=== PATIENT | female | born 1945 | race Caucasian/White ===

== ENCOUNTER → 2017-02-02 | Outpatient (CLI) | payer MEDICARE ==
[2017-02-02 12:07] LABS: Basophils % (A) 1 %; CH 31.5; Eosinophils # (A) 0.2 k/uL (0-0.7); Eosinophils % (A) 3 %; HCT 41.4 % (34.0-46.0); HGB 14.8 gm/dL (11.4-16.0); Luc # (Auto) 0.07; Luc % (Auto) 2; Lymphocytes # (A) 1.3 k/uL (1.0-4.8); Lymphocytes % (A) 28 %; MCH 33.3 pg (25.0-35.0); MCHC 35.7 g/dL (31.0-37.0); MCV 93.1 fL (80.0-100.0); Mean Platelet Volume 7.1; Monocytes # (A) 0.3 k/uL (0-1.0); Monocytes % (A) 6 %; Neutrophils # (A) 2.8 k/uL (1.3-7.7); Neutrophils % (A) 61 %; RBC 4.44 m/uL (3.80-5.40); RDW 13.3 % (11.5-15.5); WBC 4.6 k/uL (3.8-10.6); WBC (Perox) 4.44
== END | disposition home or self-care (01) ==
LOC: LABWHC1 11:31
PROVIDERS: ATTEND Psychiatry & Neurology Psychiatry
DX: D64.9 Anemia, unspecified (principal); E03.9 Hypothyroidism, unspecified
CPT/HCPCS: 36415; 82607; 82746; 84439; 84443; 85025

== ENCOUNTER 2017-12-20 10:49 | Day surgery (SDC) | payer MEDICARE ==
[2017-12-15 17:11] VITALS: BMI 33.0
[~2017-12-20 10:49] MED LIST: LACTATED RINGERS 1,000 ML IV SCH
[2017-12-20 11:11] VITALS: RESP 18; TEMP 97.8
[2017-12-20] MEDS ORDERED: LIDOCAINE 1% INJ 10MG/ML (20 ML MDV) ONE (12:41)
[2017-12-20] MEDS ORDERED: PROPOFOL 10 MG/ML 20 ML VIAL IV ONE (12:41)
--- NOTE | 2017-12-20 13:13 | P.PCN ---
Date of Procedure: 12/20/17 Procedure(s) Performed: Procedure: Total colonoscopy. Preoperative diagnosis: Screening for neoplasia. Postoperative diagnosis: Diverticulosis with no evidence of acute diverticulitis , strictures, polyps or cancer. Preparation: HalfLytely prep. Sedation: Was provided by anesthesia. Brief clinical history: The patient is a 72-year-old female who is scheduled for this evaluation for screening for neoplasia age being her risk factor. She had a prior exam more than 10 years ago. There is no family history of colon cancer. She has no abdominal complaints, bleeding or anemia. Procedure: With the patient on her left lateral decubitus position and after informed consent and adequate sedation, the perianal area was elected and it did not show any fissures or fistulas. There were no masses felt on digital rectal examination. The Olympus CFQ 160L video colonoscope was then inserted in the rectum in the usual fashion and advanced to the cecum. There were multiple diverticular orifices seen on the left side and around the hepatic flexure but there was no evidence of acute diverticulitis or strictures. No polyps or tumors were seen. I retroflexed the endoscope in the rectum before the endoscope was withdrawn. The patient tolerated the procedure well. Plan: The patient was reassured. Discussed dietary measures. She will follow- up with you as planned and I recommended repeat exam in 10 years depending on her overall health at that time.
[2017-12-20 13:27] VITALS: BP 120/75; PULSE 59
== END 2017-12-20 13:47 | disposition home or self-care (01) ==
LOC: ORWHC2ENDO 10:49
DX: Z12.11 Encounter for screening for malignant neoplasm of colon (principal); K57.30 Diverticulosis of large intestine without perforation or abscess without bleeding; I10 Essential (primary) hypertension; M19.90 Unspecified osteoarthritis, unspecified site; E05.00 Thyrotoxicosis with diffuse goiter without thyrotoxic crisis or storm; F39 Unspecified mood [affective] disorder; Z79.890 Hormone replacement therapy; Z79.899 Other long term (current) drug therapy
CPT/HCPCS: J2001; J2704; G0121

== ENCOUNTER 2018-12-26 12:16 | Emergency (ER) | payer MEDICARE ==
--- NOTE | 2018-12-26 12:34 | ED ---
General Adult HPI - General Chief complaint: Shortness of Breath Stated complaint: ELVIE Time Seen by Provider: 12/26/18 12:34 Source: patient, RN notes reviewed Mode of arrival: ambulatory Limitations: no limitations - History of Present Illness Initial comments: 73-year-old female with a past medical history of hypertension, osteoarthritis, thyroid disorder, breast cancer 20 years ago presents for shortness of breath. Patient states that last night she was putting a pillow case on a pillow when he started to feel short of breath. States that this then resolved however today she started to feel a little short of breath again. States she has had panic attacks in the past but this does not feel like that. Admits to mild chest pain but denies any significant chest pain. Denies any leg pain. Denies any recent surgeries.Patient has no other complaints at this time including shortness of breath, chest pain, abdominal pain, nausea or vomiting, headache, or visual changes. - Related Data Home Medications Medication Instructions Recorded Confirmed Escitalopram Oxalate [Lexapro] 10 mg PO DAILY 12/15/17 12/26/18 Levothyroxine Sodium [Levoxyl] 150 mcg PO DAILY 12/15/17 12/26/18 Mirtazapine 7.5 mg PO DAILY 12/15/17 12/26/18 Nadolol [Corgard] 20 mg PO DAILY 12/20/17 12/26/18 clonazePAM [KlonoPIN] 0.25 mg PO DAILY 12/26/18 12/26/18 clonazePAM [KlonoPIN] 0.5 mg PO PC-SUPPER 12/26/18 12/26/18 Allergies Allergy/AdvReac Type Severity Reaction Status Date / Time aspirin AdvReac Abdominal Verified 12/26/18 13:06 Pain Review of Systems ROS Statement: Those systems with pertinent positive or pertinent negative responses have been documented in the HPI. ROS Other: All systems not noted in ROS Statement are negative. Past Medical History Past Medical History: Cancer, Hypertension, Osteoarthritis (OA), Thyroid Disorder Additional Past Medical History / Comment(s): Graves Disease History of Any Multi-Drug Resistant Organisms: None Reported Past Surgical History: Back Surgery, Breast Surgery, Cholecystectomy, Joint Replacement Additional Past Surgical History / Comment(s): Colonoscopy; Knee replacement Mastectomy; Cataracts Additional Past Anesthesia/Blood Transfusion Reaction / Comment(s): states she had panic attack after last colonoscopy Past Psychological History: Anxiety, Depression Smoking Status: Never smoker Past Alcohol Use History: None Reported Past Drug Use History: None Reported - Past Family History Mother Family Medical History: Cancer Additional Family Medical History / Comment(s): Lung CA Father Family Medical History: Cancer Additional Family Medical History / Comment(s): Lung CA General Exam Limitations: no limitations General appearance: alert, in no apparent distress Head exam: Present: atraumatic, normocephalic, normal inspection Eye exam: Present: normal appearance, PERRL, EOMI. Absent: scleral icterus, conjunctival injection ENT exam: Present: normal exam, mucous membranes moist Neck exam: Present: normal inspection, full ROM. Absent: tenderness, meningismus, lymphadenopathy Respiratory exam: Present: normal lung sounds bilaterally. Absent: respiratory distress, wheezes, rales, rhonchi, stridor Cardiovascular Exam: Present: regular rate, normal rhythm, normal heart sounds. Absent: systolic murmur, diastolic murmur, rubs, gallop, clicks Neurological exam: Present: alert, oriented X3, CN II-XII intact Psychiatric exam: Present: normal affect, normal mood Course Vital Signs 12/26/18 12/26/18 12/26/18 12:26 13:46 17:25 Temperature 97.4 F L 97.5 F L Pulse Rate 69 63 60 Respiratory 22 18 18 Rate Blood Pressure 118/77 128/78 139/80 O2 Sat by Pulse 95 95 95 Oximetry EKG Findings - EKG Comments: EKG Findings:: Normal sinus rhythm, ventricular rate 66, IL interval 186, QRS duration 82, QTC 429 Medical Decision Making - Medical Decision Making 73-year-old female presents to the emergency department for a chief coming shortness of breath since last night. Vitals are stable. Exam is unremarkable. She does not appear in distress, actually states that shortness of breath is resolving. CBC CMP and unremarkable. Patient does have a d-dimer of 13.15 and with computed tomography scan. CT angio does show evidence of significant bilateral pulmonary embolisms without evidence for right heart strain. However patient does have a small troponin of 0.021 and a BNP of 477. Patient was started on high dose heparin. Discussed with patient and at this time we agree patient will be transferred to [facility]. Dr. strong is the accepting doctor. Disccused case and reviewed results with Dr gonzales. - Lab Data Result diagrams: 12/26/18 13:11 12/26/18 13:11 Lab Results 12/26/18 12/26/18 12/26/18 Range/Units 13:11 13:11 13:11 WBC 7.2 (3.8-10.6) k/uL RBC 4.59 (3.80-5.40) m/uL Hgb 14.7 (11.4-16.0) gm/dL Hct 42.7 (34.0-46.0) % MCV 93.1 (80.0-100.0) fL MCH 32.1 (25.0-35.0) pg MCHC 34.5 (31.0-37.0) g/dL RDW 13.9 (11.5-15.5) % Plt Count 134 L (150-450) k/uL Neutrophils % (Manual) 65 % Lymphocytes % (Manual) 24 % Monocytes % (Manual) 10 % Eosinophils % (Manual) 1 % Neutrophils # (Manual) 4.68 (1.3-7.7) k/uL Lymphocytes # (Manual) 1.73 (1.0-4.8) k/uL Monocytes # (Manual) 0.72 (0-1.0) k/uL Eosinophils # (Manual) 0.07 (0-0.7) k/uL Nucleated RBCs 0 (0-0) /100 WBC Manual Slide Review Performed RBC Morphology Normal PT 9.9 (9.0-12.0) sec INR 0.9 (<1.2) APTT 21.8 L (22.0-30.0) sec D-Dimer 13.15 H (<0.60) mg/L FEU Sodium 138 (137-145) mmol/L Potassium 4.8 (3.5-5.1) mmol/L Chloride 107 (98-107) mmol/L Carbon Dioxide 23 (22-30) mmol/L Anion Gap 8 mmol/L BUN 29 H (7-17) mg/dL Creatinine 0.66 (0.52-1.04) mg/dL Est GFR (CKD-EPI)AfAm >90 (>60 ml/min/1.73 sqM) Est GFR (CKD-EPI)NonAf 89 (>60 ml/min/1.73 sqM) Glucose 92 (74-99) mg/dL Calcium 9.6 (8.4-10.2) mg/dL Magnesium 2.0 (1.6-2.3) mg/dL Total Bilirubin 0.7 (0.2-1.3) mg/dL AST 36 (14-36) U/L ALT 18 (9-52) U/L Alkaline Phosphatase 52 (38-126) U/L Troponin I (0.000-0.034) ng/mL NT-Pro-B Natriuret Pep pg/mL Total Protein 7.6 (6.3-8.2) g/dL Albumin 4.4 (3.5-5.0) g/dL 12/26/18 12/26/18 Range/Units 13:11 13:11 WBC (3.8-10.6) k/uL RBC (3.80-5.40) m/uL Hgb (11.4-16.0) gm/dL Hct (34.0-46.0) % MCV (80.0-100.0) fL MCH (25.0-35.0) pg MCHC (31.0-37.0) g/dL RDW (11.5-15.5) % Plt Count (150-450) k/uL Neutrophils % (Manual) % Lymphocytes % (Manual) % Monocytes % (Manual) % Eosinophils % (Manual) % Neutrophils # (Manual) (1.3-7.7) k/uL Lymphocytes # (Manual) (1.0-4.8) k/uL Monocytes # (Manual) (0-1.0) k/uL Eosinophils # (Manual) (0-0.7) k/uL Nucleated RBCs (0-0) /100 WBC Manual Slide Review RBC Morphology PT (9.0-12.0) sec INR (<1.2) APTT (22.0-30.0) sec D-Dimer (<0.60) mg/L FEU Sodium (137-145) mmol/L Potassium (3.5-5.1) mmol/L Chloride (98-107) mmol/L Carbon Dioxide (22-30) mmol/L Anion Gap mmol/L BUN (7-17) mg/dL Creatinine (0.52-1.04) mg/dL Est GFR (CKD-EPI)AfAm (>60 ml/min/1.73 sqM) Est GFR (CKD-EPI)NonAf (>60 ml/min/1.73 sqM) Glucose (74-99) mg/dL Calcium (8.4-10.2) mg/dL Magnesium (1.6-2.3) mg/dL Total Bilirubin (0.2-1.3) mg/dL AST (14-36) U/L ALT (9-52) U/L Alkaline Phosphatase (38-126) U/L Troponin I 0.021 (0.000-0.034) ng/mL NT-Pro-B Natriuret Pep 477 pg/mL Total Protein (6.3-8.2) g/dL Albumin (3.5-5.0) g/dL Disposition Clinical Impression: Bilateral pulmonary embolism Disposition: OTHER INSTITUTION NOT DEFINED Condition: Serious Is patient prescribed a controlled substance at d/c from ED?: No Referrals: Fabio Babin MD [Primary Care Provider] - 1-2 days Time of Disposition: 16:26 - Out of Hospital Transfer - Req. Specs Out of Hospital Transfer - Requested Specifics: Other Emergency Center ([facility])
[2018-12-26 13:44] LABS: Anion Gap 8 mmol/L; Blood Urea Nitrogen 29 mg/dL (7-17); Calcium 9.6 mg/dL (8.4-10.2); Carbon Dioxide 23 mmol/L (22-30); Chloride 107 mmol/L (98-107); Glucose 92 mg/dL (74-99); Sodium 138 mmol/L (137-145); Total Bilirubin 0.7 mg/dL (0.2-1.3)
[2018-12-26 13:48] VITALS: RESP 18
[2018-12-26 14:01] LABS: INR 0.9 (<1.2); Potassium 4.8 mmol/L (3.5-5.1); Prothrombin Time 9.9 sec (9.0-12.0)
[2018-12-26 14:02] LABS: ALT 18 U/L (9-52); AST 36 U/L (14-36); Albumin 4.4 g/dL (3.5-5.0); Alkaline Phosphatase 52 U/L (38-126); Total Protein 7.6 g/dL (6.3-8.2)
[2018-12-26 14:12] LABS: HCT 42.7 % (34.0-46.0); HGB 14.7 gm/dL (11.4-16.0); MCH 32.1 pg (25.0-35.0); MCHC 34.5 g/dL (31.0-37.0); MCV 93.1 fL (80.0-100.0); Mean Platelet Volume 7.7; Platelet Count 134 k/uL (150-450); RBC 4.59 m/uL (3.80-5.40); RDW 13.9 % (11.5-15.5); WBC 7.2 k/uL (3.8-10.6)
--- NOTE | 2018-12-26 14:14 | XR ---
EXAMINATION TYPE: XR chest 2V DATE OF EXAM: 12/26/2018 COMPARISON: Prior chest x-ray dated 07/16/2009 HISTORY: Difficulty breathing TECHNIQUE: Frontal and lateral views of the chest are obtained. FINDINGS: There are overlying cardiac leads. Aorta is dense. There is no focal air space opacity, pl eural effusion, or pneumothorax seen. The cardiac silhouette size is within normal limits. Minimal patchy density present at the left costophrenic angle level. Findings are stable. The osseous structu res are intact. IMPRESSION: No acute cardiopulmonary process.
[2018-12-26 14:39] LABS: D-Dimer 13.15 mg/L FEU (<0.60); Partial Thromboplastin Time 21.8 sec (22.0-30.0)
[2018-12-26 14:42] LABS: Eosinophils # (M) 0.07 k/uL (0-0.7); Lymphocytes # (M) 1.73 k/uL (1.0-4.8); Monocytes # (M) 0.72 k/uL (0-1.0); Neutrophils # (M) 4.68 k/uL (1.3-7.7); Neutrophils % (M) 65 %; Nucleated Red Blood Cells 0 /100 WBC (0-0); Total Cells Counted 100
--- NOTE | 2018-12-26 15:49 | CT ---
EXAMINATION TYPE: CT chest angio for PE DATE OF EXAM: 12/26/2018 COMPARISON: NONE HISTORY: Difficulty breathing, rule out PE. CT DLP: 324 mGycm. Automated Exposure Control for Dose Reduction was Utilized. CONTRAST: CTA scan of the thorax is performed with IV Contrast, patient injected with 100 mL of Isovue 370, pul monary embolism protocol. MIP Images are created on CT scanner and reviewed. FINDINGS: LUNGS: Bilateral lower lung linear scarring and/or atelectasis is present most prominent posteriorly and near diaphragm. Some central areas of groundglass opacity are identified bilaterally favoring mil d alveolar edema. No focal consolidation. No pleural effusion or pneumothorax. No suspicious nodules or masses. MEDIASTINUM: There is satisfactory enhancement of the pulmonary artery and its branches, there is pul monary embolism in the distal right pulmonary artery and its branches into upper middle and lower lob e branches beginning axial image 59 with thrombus extending into these lobes. Most prominent thrombus in right middle and lower lobe branches with segmental and subsegmental extension. There is thrombus on the left side slightly less prominent beginning at origins of the lingular and lower lobes with s egmental and subsegmental extension. RV over LV ratio is less than 1. No reflux of contrast into IVC is seen. There are no greater than 1 cm hilar or mediastinal lymph nodes. No cardiomegaly or perica rdial effusion is seen. Atrophic thyroid gland noted. Main pulmonary artery measures 3.2 cm in diamet er axial image 59, CT findings may reflect underlying pulmonary artery hypertension. Ascending aorta measures up to 3.6 cm in diameter. OTHER: Cholecystectomy clips are seen. Scoliotic curvature with straightening of the spine and mild t o moderate multilevel tearing and disc space narrowing. IMPRESSION: Significant bilateral pulmonary embolism without CT evidence for RV strain. Critical results communicated to ordering emergency care physician assistant child care teacher via telephone at time of dictation.
[2018-12-26] MEDS ORDERED: HEPARIN SODIUM,PORCINE 10,000 UNIT/ML 1 ML VIAL IV ONE (15:59)
[2018-12-26] MEDS ORDERED: HEPARIN SODIUM,PORCINE 5,000 UNIT/ML 1 ML VIAL IV PRN (15:59)
[2018-12-26] MEDS ORDERED: HEPARIN SOD,PORK IN 0.45% NACL 25,000 UNIT in 0.45% NACL 1 250ML.BAG IV SCH (16:30)
[2018-12-26 17:26] VITALS: BP 139/80; PULSE 60; TEMP 97.5
== END 2018-12-26 18:11 | disposition other institution (70) ==
LOC: EC 12:16
DX: I26.99 Other pulmonary embolism without acute cor pulmonale (principal); I10 Essential (primary) hypertension; E07.9 Disorder of thyroid, unspecified; F32.9 Major depressive disorder, single episode, unspecified; M19.90 Unspecified osteoarthritis, unspecified site; F41.9 Anxiety disorder, unspecified; Z85.3 Personal history of malignant neoplasm of breast; Z79.890 Hormone replacement therapy; Z79.899 Other long term (current) drug therapy; Z88.6 Allergy status to analgesic agent; Z96.659 Presence of unspecified artificial knee joint
CPT/HCPCS: 36415; 93005; 85379; 83880; 80053; 83735; 84484; 85025; 85610; 85730; 71046; 71275; 99285; 96365; 96376; J1644 ×2; Q9967

== ENCOUNTER → 2019-07-12 | Outpatient (CLI) | payer MEDICARE ==
--- NOTE | 2019-07-12 09:41 | US ---
EXAMINATION TYPE: US abdomen complete DATE OF EXAM: 07/12/2019 COMPARISON: NONE CLINICAL HISTORY: R1013 EPIGASTRIC PAIN,R11.0 NAUSEA. Intermittent abdomen pain and bloating x 4 week s, history of cholecystectomy EXAM MEASUREMENTS: Liver Length: 15.4 cm CBD: 1.1 cm Spleen: 10.3 cm Right Kidney: 12.0 x 5.3 x 4.8 cm Left Kidney: 11.3 x 5.2 x 4.9 cm Pancreas: visualized portions wnl, tail limited by overlying midline bowel gas Liver: mildly heterogeneous Gallbladder: surgically absent Evidence for sonographic Valenzuela's sign: no CBD: dilated Spleen: wnl Right Kidney: wnl Left Kidney: wnl Upper IVC: wnl Abd Aorta: proximal portion upper limits of normal at 2.8cm, mid and distal portions wnl The intrahepatic portion of the IVC and proximal abdominal aorta are within normal limits. There is no evidence of cholelithiasis. The visualized portions of the pancreas are homogenous. The spleen is unremarkable. Kidneys are symmetric and free of hydronephrosis. No renal lesions are seen. IMPRESSION: 1. Fatty hepatic infiltration. 2. Nonspecific CBD dilatation.
== END | disposition home or self-care (01) ==
LOC: RADUSWWP 08:52
PROVIDERS: ATTEND Internal Medicine
DX: K76.0 Fatty (change of) liver, not elsewhere classified (principal); K83.8 Other specified diseases of biliary tract
CPT/HCPCS: 76700

== ENCOUNTER → 2022-03-01 | Outpatient (CLI) | payer MEDICARE ==
--- NOTE | 2022-03-01 18:32 | BD ---
EXAMINATION TYPE: Axial Bone Density DATE OF EXAM: 03/01/2022 COMPARISON: 08.10.2012 CLINICAL HISTORY: 77 years year old Female. ICD-10 CODE: M85.88 OTH DISRD OF BONE DENSITY AND STRUCT URE, OT Height: 66 Weight: 222 FRAX RISK QUESTIONS: Secondary Osteoporosis: YES 3. Menopause before 45: EYS, AT 45 RISK FACTORS HISTORY OF: Surgery to Spine DISC SURG. ONLY FOR LUMBAR SPINE Family History of Osteoporosis: UNKNOWN Postmenopausal woman: HYST AT AGE 45 TOTAL Take estrogen and/or progesterone medications: YES, IN THE PAST FOR 10 YRS, CAUSED BR CANCER Hyperparathyroidism: NO Adrenal Insufficiency: NO MEDICATIONS: Thyroid Medications: YES, SYNTHROID, 30 YRS Additional Medications: HX OF CHEMO FOR LT BREAST CANCER, BP MEDS, CLONOPIN, REFLUX MED, VIT D AND CALCIUM, HEART MEDS, INCLUDING BLOOD THINNER, HX OF BLOOD CLOTS IN LUNGS, Additional History: HX OF LT BREAST CANCER, WITH MASTECTOMY, LONG AGO, BACK PAIN, REFLUX, BLOOD CLOT S, HYPERTENSION, ANXIETY EXAM MEASUREMENTS: Bone mineral densitometry was performed using the [employer] System. Bone mineral density as measured about the Lumbar spine is: ----- L1-L4(G/cm2): 0.978 T Score Values are as follows: ----- L1: -1.9 ----- L2: -2.1 ----- L3: -1.6 ----- L4: -1.4 ----- L1-L4: -1.7 Bone mineral density has: Decreased -0.8% since study of: 08.10.2012 Bone mineral density about the R hip (g/cm2): 0.815 Bone mineral density about the L hip (g/cm2): 0.781 T Score values are as follows: -----R Neck: -1.3 -----L Neck: -1.6 -----R Total: -1.5 -----L Total: -1.8 Bone mineral density has: Decreased -4.0% since study of: 08.10.2012 FRAX%s: The graph provided illustrates a 17.3% chance for a major osteoporotic fx and a 4.2% chance f or the hips probability for fx in 10 years time. IMPRESSION: Osteopenia (T Score between -2.5 and -1). There is slightly increased risk of fracture and the patient may be considered for treatment. Re-Screen 2-5 years. NOTE: T-SCORE=SD OF THE YOUNG ADULT MEAN.
== END | disposition home or self-care (01) ==
LOC: RADBDWWP 12:22
PROVIDERS: ATTEND Internal Medicine
DX: M85.88 Other specified disorders of bone density and structure, other site (principal); Z78.0 Asymptomatic menopausal state
CPT/HCPCS: 77080

== ENCOUNTER → 2023-08-04 | Outpatient (CLI) | payer MEDICARE ==
--- NOTE | 2023-08-05 11:37 | MR ---
EXAMINATION TYPE: MR lumbar spine wo con DATE OF EXAM: 08/04/2023 5:18 PM CLINICAL INDICATION:Female, 78 years old with history of M54.50, Low back pain that radiates down lef t leg COMPARISON: None TECHNIQUE: Multi planar, multi sequence imaging was performed utilizing: T1-weighted, T2-weighted, a nd turbo inversion recovery imaging of the lumbar spine. IV Contrast: (None if empty) FINDINGS: Alignment: The lumbar vertebral bodies have preserved heights and alignment. Cord: The conus medullaris and the distal spinal cord appear unremarkable with regards to their signa l intensity and morphology. Bones/Discs: Multilevel degeneration changes with Modic endplate changes, osteophytes, Schmorl's node s and facet joint arthropathy. Findings worse at L4-L5. T12-L1: No evidence of significant spinal canal stenosis or neural foraminal stenosis. L1-L2: No evidence of significant spinal canal stenosis or neural foraminal stenosis. L2-L3: Disc bulge and facet joint arthropathy result in mild spinal canal and mild bilateral neural f oraminal stenosis. L3-L4: Disc bulge with facet joint arthropathy of moderate to severe spinal canal stenosis. There is clumping of the cauda equina. L4-L5: Complete loss of disc space with facet joint arthropathy of mild spinal canal stenosis. The ne ural foramen are mildly narrowed. L5-S1: The disc is rounded posterior morphology without significant spinal canal stenosis. Facet join t arthropathy with moderate to severe right and moderate left neural foraminal stenosis. No significant spinal canal or neural foraminal stenosis in the remainder of the visualized levels. Other findings: Simple appearing high T2 left renal cyst measuring up to 2.6 cm. Mild intrahepatic a nd extrahepatic biliary dilation likely secondary to cholecystectomy physiology. IMPRESSION: 1. Moderate to severe degeneration changes worse at L4-L5 with complete loss of disc space. 2. L4-L5 moderate to severe spinal canal stenosis secondary disc bulge and facet joint arthropathy. 3. L5-S1 moderate to severe right and moderate left neural foraminal stenosis.
== END | disposition home or self-care (01) ==
LOC: RADMRIMAIN 16:20
PROVIDERS: ATTEND Orthopaedic Surgery
DX: M51.16 Intervertebral disc disorders with radiculopathy, lumbar region (principal); M48.061 Spinal stenosis, lumbar region without neurogenic claudication; M47.26 Other spondylosis with radiculopathy, lumbar region; M99.71 Connective tissue and disc stenosis of intervertebral foramina of cervical region
CPT/HCPCS: 72148

== ENCOUNTER → 2023-11-03 | Outpatient (CLI) | payer MEDICARE | END | disposition home or self-care (01) | LOC: LABPAT 11:04 | PROVIDERS: ATTEND Orthopaedic Surgery | DX: Z01.812 Encounter for preprocedural laboratory examination (principal); Z22.322 Carrier or suspected carrier of Methicillin resistant Staphylococcus aureus; M48.062 Spinal stenosis, lumbar region with neurogenic claudication | CPT/HCPCS: 86850; 86900; 86901; 87070 ==

== ENCOUNTER 2023-11-07 09:00 | Observation (INO) | payer MEDICARE ==
[~2023-11-07 09:00] MED LIST changes: -LACTATED RINGERS 1,000 ML IV SCH; +MIDAZOLAM 2 MG/2 ML VIAL IV PRN; +TRANEXAMIC 1,000 MG/100ML-NACL 1,000 MG in SALINE 1 100ML.BAG IVPB PRN
[2023-11-07] MEDS: LACTATED RINGERS 1,000 ML IV SCH (09:24)
[2023-11-07] MEDS: DEXAMETHASONE SOD PHOSPHATE 4 MG/ML 1 ML VIAL IVP ONE (09:51)
[2023-11-07] MEDS: GABAPENTIN 300 MG CAP PO PRN (09:51)
[2023-11-07] MEDS: ACETAMINOPHEN TAB 500 MG TAB PO PRN (09:51)
[2023-11-07] MEDS: ONDANSETRON 4 MG/2 ML VIAL IVP PRN (09:51)
--- NOTE | 2023-11-07 10:06 | P.HPOR ---
History of Present Illness H&P Date: 11/07/23 .T:Title: [facility] H&P Age: 78 year Height: 5'8" Weight: 228 lbs BMI: 34.67 kg/m2 Occupation:Homemaker VAS: 5 CC: Re-check on low back pain IMPRESSION: It was my pleasure to have seen and examined [place]. I reviewed the patient's clinical syndrome, physical findings, and imaging studies during the appointment today. It is my impression that the patient has a diagnosis of. 1. 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 Neurogenic claudication 3. Lumbar spondylosis with radiculopathy 4. h/o L4-5 laminectomy (Dr. Fernández) PLAN: Based on my findings I suggest the following course of action: -I discussed treatment options with the patient, including operative and non- operative options, and they have elected to proceed with the following surgical procedure: L3-4 decompressive laminectomy The indications, risks, benefits, and alternatives to surgery were discussed with the patient at length. Specifically (but not limited to) the risks of infection, stiffness, recurrence of symptoms, need for revision surgery, local numbness, neurovascular injury, and blood clots were discussed. The patient's questions were answered. The decision to proceed was made. -I have advised the patient to take Calcium, Vitamin D, and Vitamin C daily. - Ambulate daily. - Take medications as directed. - Ice and rest for pain and swelling control. Spine Surgery Risk Review Mr. Mcdonald is presenting for evaluation of low back and bilateral right lower extremity pain, right lower extremity numbness, tingling, and weakness. It was my pleasure to have seen and examined Mr. Mcdonald. In our visit today we have had a chance to go over subjective complaints, physical examination findings and treatments including the natural course history without intervention and various interventional options. The patients imaging demonstrates: MRI completed at [facility] on 08/04/2023 of Lumbar Spine: Images reviewed with pt. Moderate to severe spondylotic changes through lumbar back . L3-4 shows worst of these with severe lumbar stenosis, central and foraminal. Lateral recess stenosis noted. Ligamental hypertrophy and facet hypertrophy contributing. No fracture. no lesions. No instability noted at this time. XRayLumbar Multiview (AP, Lateral, Flexion, Extension) with AP pelvis; 5 views taken at [facility] on 06/08/23: Mild multilevel spondylitic with moderate degenerative changes with preserved alignment. Multilevel diminished disc height with complete disc collapse from L4-L5, L5-S1. L5-S1 bilateral foraminal stenosis. Vertebral body heights are preserved. No acute osseous abnormalities. AP Pelvis: The visualized sacrum and iliac wings are within normal limits. On physical exam, Mr. Mcdonald demonstrates: A continued ache-like, burning pain throughout the low back that radiates down into the left buttock and posterior and lateral aspects of the left lower extremity into the ankle. She notes continued left foot numbness. The patient denies experiencing any right lower extremity pain, numbness, or tingling. She notes increased weakness of the left lower extremity. She states she is unable to walk longer than 5 to 10 minutes before sitting due to increasing pain. She notes that she as to lean over the shopping cart while grocery shopping for relief. The patient states her symptoms worsen when going from a seated to standing position, rolling over in bed, and after prolonged ambulation. The patient reports experiencing severe sleep disturbances related to her ongoing pain and associated symptoms. I have explained to the patient that as their condition progresses it will cause further neurological deficits and eventual paralysis. Based on the patients imaging, physical exam, and the rapid progression and disabling nature of their symptoms, at this time I recommend surgery in the form of a: L3-4 laminectomy. I discussed the risk and benefits of this procedure at length with Mr. Mcdonald. The patient agreed to considered pursuing the procedure abovementioned. Prior to surgery, she should follow up with her PCP (Cardio, ID, IM etc) for clearance. Questions were invited and answered, and the patient wishes to proceed as outlined below. Currently, I am recommendin.L3-4 laminectomy 2.Follow up with PCP for surgical clearance 3.Review of surgical risks and benefits as well as an educational packet on the proposed surgical procedure. Risks: All surgical procedures come with inherent risks, including those related to positioning, anesthesia, intraoperative findings, and postoperative complications. It is important to understand that surgery does not come with any guarantee of a successful outcome as complications and adverse events are always possible. The patient was given a handout in office today discussing the surgical procedure and risks associated with the intervention, both of which were discussed with the patient. These risks include but are not limited to the following: * Experiencing same, different or even worse symptoms in back, neck, arms, or legs compared to before surgery. Requiring further surgery or other forms of treatment presently or at some time in the future at same or other levels of the intended spine surgery. On an extreme but fortunately relatively rare basis severe complication such as blindness, stroke, heart attack, temporary and/or permanent nerve injury, paralysis, coma, or may occur, sometimes without known explanation. Surgical complications may include but are not limited to risk of infection, fluid accumulation in the surgical dissection site, including a seroma or hematoma, that requires additional surgery, wound drainage, bleeding, new numbness or weakness, vision changes/loss, spinal fluid leakage, non-healing and/or infected incision, headaches, difficulty or inability to swallow, hoarseness, hemopneumothorax, pneumothorax, impotence, retrograde ejaculation, vaginal dryness; injury to nerves, spinal cord, blood vessels, lymphatics or other vital organs (i.e., bowel injury, injury to the great vessels); he terotopic bone formation; complications related to the hardware such as screws, rods, cages including misplaced hardware, device failure, instrumentation at the wrong spine level, hardware fracture/breakage, or hardware loosening; vertebral failure of the spinal column above or below the newly placed hardware; retained surgical instrumentations or devices and the need for further surgery. * Medical risks of the planned spine surgery include but are not limited to generalized Infections to the whole body or local areas outside of the surgical site (sepsis), heart attack, bleeding, anaphylaxis, meningitis, seizure, epilepsy, hearing loss, burn koenig, laceration of the head or other areas of the body, bruising, hypersensitivity of the skin, bladder over distension; allergic reaction; shoulder injury related to positioning; fat, blood and air clots to other areas of the body like heart, lungs, brain; failure of internal organs such as lungs, kidneys, liver and excessive bleeding. If blood transfusions are necessary, note that transfusions may cause intolerance reactions such as anaphylaxis or other complex reactions. Despite best efforts, the results of spine surgery might not heal in terms of bone, soft tissues such as skin, fascia, ligaments, and joints. Additionally, in order to achieve best possible results, spine surgery may be carried out beyond the initially planned levels and involve decompression, fusion including insertion of hardware at levels other than the original intended area of surgical interest change some portions of the procedure in order to ensure the best possible outcomes. With spine surgery and spinal fusion, there are different off label uses of instrumentation (devices, implants and hardware) as well as biological substances (bone morphogenic proteins, demineralized bone matrix) as well as using extra bone from allograft sources (i.e. cadaver bone) or autograft (iliac crest bone, ribs, or the spine itself). The patient has been given information about these practices and their inherent risks and benefits. [facility] is an educational center that serves as a training facility for neurosurgical and orthopedic [employer] and Nursing students. Physician assistants are medically trained surgical providers who function in the outpatient, inpatient, and operating room setting under the direct supervision of the attending surgeon. [facility] has multiple operating rooms with single and overlapping rooms running daily. They currently function under the required guidelines as produced by the [facility] Finance Committee with regards to the overlapping rooms and will continue to comply with changes to this policy as they occur. The requirements include and are complied with as follows: (1) the critical portions of the overlapping rooms will not occur at the same time, (2) the attending physician will be physically present during the critical portions of the procedure and immediately available during the entire case, and (3) a back-up attending is designated should the primary attending not be immediately available. The patient has had a chance to review all the listed information, has been given print outs detailing this information, and has had all his/her questions answered to their satisfaction. It was my pleasure to have seen and examined Mr. Mcdonald. In our visit today we have had a chance to go over my understanding of our patient's current condition, the natural course history without intervention and various interventional options. Questions were invited and answered, and the patient wishes to proceed as outlined above. I have seen and examined the patient for 25 minutes and we have spent more than 50% of the time in repeat and detailed counseling about the patient's condition, its natural course history with out and as much as can be predicted with surgery and re-review of various surgical treatment options. In conclusion, Mr. Mcdonald requested we proceed with the above suggested surgery and are willing to accept risks and limitations of the suggested surgery as nature of the disease process and our best attempts at treatment for the condition. Thank you again for allowing us to be part of your patient's care. Please don't hesitate to contact me if you have any further questions. FOLLOW UP: Preoperative Evaluation (1 week prior to scheduled surgery) HISTORY: Mr. Mcdonald presents to the office today, 08/19/23, for re-evaluation of her low back pain. The patient reports experiencing a continued ache-like, burning pain throughout the low back that radiates down into the left buttock and posterior and lateral aspects of the left lower extremity into the ankle. She notes contin ued left foot numbness. The patient denies experiencing any right lower extremity pain, numbness, or tingling. She notes increased weakness of the left lower extremity. She states she is unable to walk longer than 5 to 10 minutes before sitting due to increasing pain. She notes that she as to lean over the shopping cart while grocery shopping for relief. The patient states her symptoms worsen when going from a seated to standing position, rolling over in bed, and after prolonged ambulation. The patient reports experiencing severe sleep disturbances related to her ongoing pain and associated symptoms. The patient states she has history of an L4-[address] Jolene cheatham in 2006. The patient is currently taking Tylenol and Motrin as needed for relief of her symptoms. Otherwise patient denies any f/c/sob/cp, perineal numbness or tingling, bowel or bladder incontinence/retention. The patient ambulates independently today. HPI: Ms. Mcdonald returned to the office on 07/27/2023 for a recheck of her low back pain. Patient continues to report a burning and stabbing lumbar pain that radiates into the left lower extremity down to the ankle. She notes intermittent numbness of the left foot. Patient states her pain is increased with sitting to standing and rolling over in bed. Patient states she did have a back procedure performed by Dr. Jolene cheatham in 2006, patient is unsure of the type of procedure. Patient is currently in physical therapy which she states isnot helpful and exacerbates her pain. Patient has trialed the below listed treatment modalities. For her symptoms the patient is taking Tylenol and Ibuprofen as needed for her symptoms. Otherwise patient denies any f/c/sob/cp, perineal numbness or tingling, bowel or bladder retention/incontinence, and is ambulating independently. Ms. Mcdonald presented to the on 06/08/2023 for an evaluation of her low back pain. Patient describes a burning and stabbing lumbar pain that has been present for many years that has progressed over the past 2 weeks after she had carried and some heavy groceries into the house from her car. In addition to her lumbar pain patient does report that it radiates into the left lower extremity. Patient states she did have a back procedure performed by Dr. Jolene cheatham in 2006, patient is unsure of the type of procedure. Ms. Mcdonald states that her symptoms are exacerbated with prolonged standing, ambulation, changing position from sitting to standing. Patient has trialed the below listed treatment modalities. for her symptoms the patient is taking Tylenol arthritis and Motrin as needed. Otherwise patient denies any f/c/sob/cp, perineal numbness or tingling, bowel or bladder retention/incontinence, and is ambulating independently. The patients' past social, medical, family, surgical history, as well as review of systems, have been reviewed. Please refer to the Neurosurgery History and Physical form that has been scanned into our electronic medical record system. 16 points review of systems completed and as stated in HPI, all other systems reviewed are negative. PAST TREATMENTS: -Physical Therapy of the Lumbar Spine with [facility] - Physician directed at home stretches/exercises - Home heat/ice therapies - Activity modification Social History: Reviewed, see appropriate section of the chart for details. P3 Family History: Reviewed, see appropriate section of the chart for details. P2 Past Medical History: Reviewed, see appropriate section of the chart for details. [id number] Medications: Rx: Corgard 20 mg tablet Ref: 0 Rx: ibuprofen 200 mg capsule Ref: 0 Rx: KlonoPIN 0.5 mg tablet Ref: 0 Rx: LevoxyL 150 mcg tablet Ref: 0 Rx: Lexapro 10 mg tablet Ref: 0 Rx: pantoprazole 40 mg tablet,delayed release Ref: 0 Rx: Remeron 15 mg tablet Ref: 0 Rx: Tylenol Arthritis Ref: 0 Rx: Xarelto 20 mg tablet Ref: 0 RADIOGRAPHS: No new x-rays completed in office today. Please see previous notes. MRI completed at [facility] on 08/04/2023 of Lumbar Spine: Images reviewed with pt. Moderate to severe spondylotic changes through lumbar back . L3-4 shows worst of these with severe lumbar stenosis, central and foraminal. Lateral recess stenosis noted. Ligamental hypertrophy and facet hypertrophy contributing. No fracture. no lesions. No instability noted at this time. Images PHYSICAL EXAM: General: AOX3, NAD, Well hydrate, Well nourished HEENT: No lumps or masses Heart: RRR, no murmur, no kiet Lungs: CTAB, no w/r/r Extremities: No color changes, no pooling Hairy Patches: ABSENT Dorsal Skin Dimples: Normal [employer] spots: ABSENT Surgical Incisions: Muscle Appearance: Well formed, no atrophy Palpation: Midline: NO Paracervical: NO Parathoracic: NO Paralumbar: NO SIJ Testing: Yes TTP: No Fortins Finger: FABER4: Compression: Distraction: Thigh thrust: Hip thrust: Postural Balance: Coronal: BALANCED Sagittal: BALANCED Shoulder height: LEVEL Pelvic Girdle: LEVEL ROM and Appearance: Neck: UNRESTRICTED Lumbar: RESTRICTED Shoulders: Symmetrical Hips: Symmetrical Knees: Symmetrical Hands: Symmetrical Feet: Symmetrical VASCULAR STATUS: RUE- 2 LUE-2 RLE-2 LLE-2 Edema: NONE NEUROLOGICAL EXAMINATION: Mental Status: Awake, alert, oriented fully with normal attention, concentration and memory. Fluent appropriate speech. CRANIAL NERVES: I: Olfactory not tested. II: Visual acuity normal, no visual field deficit noted with confrontation. III,IV: Normal pupillary reflexes & intact extraocular movements without nystagmus. V,: Intact symmetrical facial sensation. VII: Intact symmetrical facial motor movementVIII: Hearing intact. IX,X: Intact gag, swallow, & normal voice. XI: Sternocleidomastoid, trapezius function intact. XII: Tongue midline with normal movements. TENSIONING: SLR-NEG Lhermittes- NEG Spurling's Sign- NEG Cubital Percussion- NEG Tinels at wrist- NEG MOTOR EXAM (0-5/5, NT) Muscle appearance:Symmetrical, without signs of atrophy or dystrophy UPPER EXTREMITY RIGHT LEFT Shoulder Abduction 5 5 Biceps 5 5 Triceps 5 5 Wrist Extension 5 5 Hand Intrinsic 5 5 Plug Overwrap Machine Tender 5 5 -Hand and finger dexterity intact bilaterally? YES -Dysdiadochokinesia examination negative bilaterally? YES LOWER EXTREMITY RIGHT LEFT Hip Flexion 4 4 Knee Extension 4 4 Knee Flexion 4 4 Dorsiflexion 4 4 Plantarflexion 4 4 EHL 4 4 FHL 4 4 -Trendelenburg sign negative bilaterally REFLEXES (0-4/2, NT): RUE-2LUE-2 RLE-2 LLE-2 PATHOLOGICAL REFLEXES: Hoffmans: ABSENT BL Clonus: ABSENT BL Babinski: NEG BL Rectal Tone: INTACT SENSATION (0-4, NT): RUE-2LUE-2 RLE-2 LLE-2 Dermatomal deficit: L5-S1 GAIT AND FUNCTIONAL EVALUATION: Ambulatory aids- INDEPENDENT Rombergs test- NEG toe/heel walk- INTACT Squatting to a min of 60 deg and back- NOT ABLE Single leg stance- NOT ABLE Hand to finger (nose)- ABLE smooth PATIENT EDUCATION: Medications Reviewed: YES In our visit today Mr. Mcdonald and I have had a chance to go over my understanding of the patient's current condition, the natural course history without intervention and various interventional options. Questions were invited and answered, and the patient wishes to proceed as outlined above. I will be sure to keep you updated after Mr. Mcdonald returns here for further follow-up. Thank you again for your referral. Please do not hesitate to contact me if you have any further questions. Signed and authenticated by: Pedro Pablo Johnson [facility] [address] [place] [address] This message is confidential, intended only for the named recipient(s) and may contain information that is privileged or exempt from disclosure under applicable law. If you are not the intended recipient(s), you are notified that the dissemination, distribution or copying of this information is strictly prohibited. If you received this message in error, please notify the sender then delete this message. # SIGNED BY Pedro Pablo Gonzalez (GOO)08/26/2023 08:26AM Past Medical History Past Medical History: Cancer, GERD/Reflux, Hypertension, Osteoarthritis (OA), Pulmonary Embolus (PE), Thyroid Disorder Additional Past Medical History / Comment(s): Graves Disease, hx. PE's 2019-t akes xarelto, hx. breast cancer 2006-had surgery & chemo History of Any Multi-Drug Resistant Organisms: None Reported Past Surgical History: Back Surgery, Breast Surgery, Cholecystectomy, Joint Replacement Additional Past Surgical History / Comment(s): Colonoscopy; right Knee replacement, left Mastectomy; suhas. Cataracts, EGD Past Anesthesia/Blood Transfusion Reactions: Postoperative Nausea & Vomiting (PONV) Additional Past Anesthesia/Blood Transfusion Reaction / Comment(s): states she had panic attack after last colonoscopy, nauseated after EGD Smoking Status: Never smoker - Past Family History Mother Family Medical History: Cancer Additional Family Medical History / Comment(s): Lung CA Father Family Medical History: Cancer Additional Family Medical History / Comment(s): Lung CA Sister(s) Family Medical History: Blood Disorder, CVA/TIA Additional Family Medical History / Comment(s): factor 5 Medications and Allergies Home Medications Medication Instructions Recorded Confirmed Type Escitalopram Oxalate [Lexapro] 5 mg PO 1400 12/15/17 11/07/23 History Levothyroxine Sodium [Levoxyl] 150 mcg PO DAILY 12/15/17 11/07/23 History nadoloL [Corgard] 20 mg PO DAILY 12/20/17 11/07/23 History clonazePAM [KlonoPIN] 0.25 mg PO DAILY 12/26/18 11/07/23 History Mirtazapine [Remeron] 7.5 mg PO HS 11/03/23 11/07/23 History Pantoprazole [Protonix] 40 mg PO PC-SUPPER 11/03/23 11/07/23 History Rivaroxaban [Xarelto] 20 mg PO DAILY 11/03/23 11/07/23 History Allergies Allergy/AdvReac Type Severity Reaction Status Date / Time aspirin AdvReac Abdominal Verified 11/07/23 09:21 Pain Physical Examination Osteopathic Statement: *. No significant issues noted on an osteopathic structural exam other than those noted in the History and Physical/Consult.
[2023-11-07] MEDS ORDERED: ROCURONIUM 10 MG/ML (5 ML VIAL) IV ONE (10:46)
[2023-11-07] MEDS ORDERED: ePHEDrine 50 MG/ML 1 ML VIAL ONE (10:46)
[2023-11-07] MEDS ORDERED: LIDOCAINE 1% INJ 10MG/ML (20 ML MDV) ONE (10:46)
[2023-11-07] MEDS ORDERED: GLYCOPYRROLATE 0.2 MG/ML 2 ML VIAL ONE (10:46)
[2023-11-07] MEDS ORDERED: SUCCINYLCHOLINE CHLORIDE 200 MG/10 ML VIAL IV ONE (10:46)
[2023-11-07] MEDS ORDERED: PROPOFOL 10 MG/ML 20 ML VIAL IV ONE (10:46)
[2023-11-07] MEDS ORDERED: NEOSTIGMINE 1 MG/ML 10 ML VIAL ONE (10:46)
[2023-11-07] MEDS ORDERED: HYDROmorphone (PF) 1 MG/ML ONE (10:46)
[2023-11-07] MEDS ORDERED: fentaNYL (PF) 50 MCG/ML 2 ML AMP ONE (10:46)
[2023-11-07] MEDS: BUPIVACAINE (PF) 0.5% 30 ML VIAL SQ ONE (11:22)
[2023-11-07] MEDS: LIDOCAINE 2% (PF) 20 MG/ML 10 ML AMP SQ ONE (11:22)
[2023-11-07] MEDS: GENTAMICIN 80 MG in SODIUM CHLORIDE 0.9% IRRIGATIO 3,000 ML IRRIGATION ONE (12:15)
[2023-11-07] MEDS: ceFAZolin 3,000 MG in SODIUM CHLORIDE 0.9% IRRIGATIO 3,000 ML IRRIGATION ONE (12:15)
[2023-11-07] MEDS: LACTATED RINGERS 1,000 ML IV ONE (12:43)
[2023-11-07] MEDS: VANCOMYCIN 1,000 MG VIAL MISCELLANE ONE (12:45)
--- NOTE | 2023-11-07 12:55 | P.OP ---
Date of Procedure: 11/07/23 Preoperative Diagnosis: 1. L3-5 STENOSIS 2. LLE RADICULOPATHY 3. NEUROGENIC CLAUDICATION 4. LOW BACK PAIN S/P PREVIOUS L5-S1 LAMINECTOMY Postoperative Diagnosis: 1. L3-5 STENOSIS 2. LLE RADICULOPATHY 3. NEUROGENIC CLAUDICATION 4. LOW BACK PAIN S/P PREVIOUS L5-S1 LAMINECTOMY 5. PUNCTATE DURAL LESION Procedure(s) Performed: 1. L3-4 BILATERAL LAMINECTOMY, PARTIAL MEDIAL FACETECTOMY AND FORAMINOTOMY 2. L4-5 BILATERAL LAMINECTOMY, PARTIAL MEDIAL FACETECTOMY AND FORAMINOTOMY 3. DURAL REPAIR WITH PATCH GRAFT CPTMOD 22 THIS CASE TOOK 75% LONGER THAN EXPECTED DUE TO CORMORBID CONDITIONS, HIGH BMI >30, EXTENT OF LUMBAR DISEASE, REVISION NATURE, AND HIGH TECHNICALITY OF THE CASE. Implants: NONE Anesthesia: CHUCKYA Surgeon: Pedro Pablo Gonzalez Pipe Manufacture Supervisor #1: Sanjay Lafleur (WAS PRESENT AND ASSISTED WITH ALL ASPECTS OF THE CASE FROM POSITION TO CLOSURE) Estimated Blood Loss (ml): 100 IV fluids (ml): 850 Urine output (ml): 200 Pathology: none sent Condition: stable Disposition: PACU Indications for Procedure: MrS. Mcdonald is presenting for evaluation of low back and bilateral right lower extremity pain, right lower extremity numbness, tingling, and weakness. It was my pleasure to have seen and examined Mrs. Mcdonald. In our visit today we have had a chance to go over subjective complaints, physical examination findings and treatments including the natural course history without intervention and various interventional options. The patients imaging demonstrates: MRI completed at [facility] on 08/04/2023 of Lumbar Spine: Images reviewed with pt. Moderate to severe spondylotic changes through lumbar back . L3-4 shows worst of these with severe lumbar stenosis, central and foraminal. Lateral recess stenosis noted. Ligamental hypertrophy and facet hypertrophy contributing. No fracture. no lesions. No instability noted at this time. XRayLumbar Multiview (AP, Lateral, Flexion, Extension) with AP pelvis; 5 views taken at [facility] on 06/08/23: Mild multilevel spondylitic with moderate degenerative changes with preserved alignment. Multilevel diminished disc height with complete disc collapse from L4-L5, L5-S1. L5-S1 bilateral foraminal stenosis. Vertebral body heights are preserved. No acute osseous abnormalities. AP Pelvis: The visualized sacrum and iliac wings are within normal limits. On physical exam, Mrs. Mcdonald demonstrates: A continued ache-like, burning pain throughout the low back that radiates down into the left buttock and posterior and lateral aspects of the left lower extremity into the ankle. She notes continued left foot numbness. The patient denies experiencing any right lower extremity pain, numbness, or tingling. She notes increased weakness of the left lower extremity. She states she is unable to walk longer than 5 to 10 minutes before sitting due to increasing pain. She notes that she as to lean over the shopping cart while grocery shopping for relief. The patient states her symptoms worsen when going from a seated to standing position, rolling over in bed, and after prolonged ambulation. The patient reports experiencing severe sleep disturbances related to her ongoing pain and associated symptoms. I have explained to the patient that as their condition progresses it will cause further neurological deficits and possibly eventual paralysis. Based on the patients imaging, physical exam, and the rapid progression and disabling nature of their symptoms, at this time I recommend surgery in the form of a: L3-4 laminectomy. I discussed the risk and benefits of this procedure at length with Mr. Mcdonald. The patient agreed to considered pursuing the procedure abovementioned. Prior to surgery, she should follow up with her PCP (Cardio, ID, IM etc) for clearance. Questions were invited and answered, and the patient wishes to proceed as outlined below. Currently, I am recommendin.L3-4 laminectomy Description of Procedure: L3-5 open laminectomy The patient was seen and examined in the preoperative area. All preoperative protocols were followed. Informed consent was obtained, risks and benefits of the procedure were discussed at length. Risks including bleeding infection damage to the surrounding tissue and risk of reoperation were discussed with the patient. Risk of anesthesia up to and including was discussed with the patient. These are outlined in the risk review. They were willing to accept these risks and all of the risks of surgery. The patient was given a weight- based dose of antibiotics in the form of [Ancef]. The patient was seen and evaluated by the anesthesia team who deemed them fit for surgery. The site was marked, the patient was willing to proceed with the procedure. The patient was transferred to the operative suite by the Department of anesthesia. They were then drifted off to sleep by the department anesthesia and [GETA] was performed. The patient tolerated this well. [King catheter was placed by nursing staff, atraumatically]. Once confirmation of lines and ventilation the patient was transferred to a [prone Murphy table very carefully]. All bony prominences including wrists, elbows, axilla, chest, hips, and thighs, and feet were padded very well. Special attention was paid to the genitalia and these were padded accordingly. SCDs were placed on bilateral lower extremities and were connected. Arms were well padded and placed [on arm boards up and out in the 90/90 position]. Once in position, again we confirmed good ventilation capabilities and that lines were running appropriately. The patient's [Lumbar] spine was then exposed. 1010s were placed outlining the incision site. Standard alcohol was used to clean the incision site and allowed to dry. C-arm was used to biomark the patient and confirm level for incision which was marked with a skin marker. Operative briefing was performed with all teams and everyone in agreement to proceed. The patient was then prepped and draped in a normal sterile fashion. Timeout was then performed and all parties were in agreement with the procedure to be performed. Midline skin incision made and subperiosteal dissection taken down over the lamina of L2-5. Facet joints located and protected. [place] 4 was placed at the pars of L3 to lars and lateral image taken to confirm levels for operation. Bilateral laminectomy, partial medial facetectomy and foraminotomies were then performed at L3-4 and L4-5 using highspeed maday, 2-0 upbite curette, 6-0 kerrison and 4-0 kerrison rongures. Ligamentum was removed. Deep facet joints capsule was removed along with cysts that were found deep from the facets. Foraminotomies done with kerrison and checked with a Valenzuela ball probe. Once decompression completed, meticulous hemostasis was done with floseal, paddies and gel foam. It was noted during the decompression that there was dural erosion at the right side at the L4-5 pars lamina junction due to the stenosis. This was promptly identified and bony stenosis removed along with ligament. There lesion was then closed with 6.0 prolene. A fat graft was then taken from subq region and sewn into this area to create a patch in this area. Valsalva to 40 mmHg confirmed good watertight closure. There was another lesion that was small er and did not invest the arachnoiod but was likely due to the previous surgery in the area on the left at the L4-5 region. This was investigated but was not leaking. Gel foam was placed over the area to prevent any future issues. The wound bed was then irrigated with 6 L Abx Anfect and Gen followed by 6L NSS. The wound was inspected. Good decompression noted with no injury. Xray taken AP and lateral with markers to lars the decompression. Tisseal was then placed over the dura for seal and Surgicel was placed on the dura. 2g Vanco powder placed in wound. No drain was placed due to tear. The wound bed was dry and meticulous hemostasis was achieved. We then proceeded with closure. #1 PDS placed in the facia. 0 Vicryl placed in the deep subq and 2-0 in the superficial. Belen placed in the skin. Wound edges approximated very well. The wound was then cleaned and dressed sterilly with Optifoam dressing, drain sponge and tegaderm. The patient was transferred back to their hospital bed atraumatically. Patient was then awakened and extubated by the department of anesthesia having tolerated the procedure very well with no complications. They were transferred to the postoperative care unit in stable condition.
[2023-11-07] MEDS ORDERED: HYDROmorphone 1 MG/ML 1 ML SYRINGE IVP PRN (13:10)
[2023-11-07] MEDS ORDERED: MAGNESIUM HYDROXIDE 2,400 MG/30 ML CUP PO PRN (13:10)
--- NOTE | 2023-11-07 13:16 | FL ---
EXAMINATION TYPE: FL guidance operating room DATE OF EXAM: 11/07/2023 HISTORY: Fluoroscopy time Total dose area product (DAP) in uGy*m?, mGy*cm? (or similar): 3.4806 IMPRESSION: 1. Fluoroscopy time.
--- NOTE | 2023-11-07 13:18 | XR ---
EXAM TYPE: LUMBAR SPINE X RAY SERIES COMPARISON: NONE HISTORY: A lumbar laminectomy TECHNIQUE: 6 views are submitted. FINDINGS: Limited intraoperative resolution images demonstrate overlying surgical metallic instruments and intr aoperative changes. IMPRESSION: 1. See above.
[2023-11-07] MEDS: HYDROmorphone 0.5 MG/0.5 ML SYRINGE IVP PRN ×2 (13:45→17:04)
[2023-11-07] MEDS: GABAPENTIN 300 MG CAP PO SCH (16:04)
[2023-11-07] MEDS: ACETAMINOPHEN TAB 325 MG TAB PO SCH (17:01)
[2023-11-07] MEDS: PANTOPRAZOLE 40 MG TABLET PO SCH (20:27)
[2023-11-08] MEDS: HYDROcodone/APAP 10-325MG 1 EACH TAB PO PRN (00:24)
[2023-11-08] MEDS: CYCLOBENZAPRINE 5 MG TAB PO PRN (01:16)
[2023-11-08] MEDS: LEVOTHYROXINE 75 MCG TAB PO SCH (07:17)
--- NOTE | 2023-11-08 07:21 | P.PN ---
Subjective Progress Note Date: 11/08/23 Principal diagnosis: L3-5 Stenosis LE radiculopathy Neurogenic claudication Pt s/e this AM in bed. She had a decent night with some back pain but otherwise she has not complaints. She denies any numbness/tingling in the LE. She states the shooting pain seems better. She denies any other sx at this time. She deneis any OH, blurred our doubled vision, nausea, vomiting. She is in a seated position this AM in bed and she states she is getting ready for breakfast. Objective - Vital Signs Vital signs: Vital Signs Temp 97.5 F L 11/08/23 01:19 Pulse 55 L 11/08/23 01:19 Resp 17 11/08/23 01:19 BP 122/78 11/08/23 01:19 Pulse Ox 94 L 11/08/23 01:19 FiO2 Intake & Output 11/07/23 11/08/23 11/08/23 18:59 06:59 18:59 Intake Total 1502 Output Total 950 500 Balance 552 -500 Weight 104 kg Intake: IV 1502 Output: Urine 850 500 Estimated Blood Loss 100 Other: Voiding Method Indwelling Catheter - Exam Physical Exam: -Patient is alert and oriented 3 appears well-nourished well-hydrated is in no acute distress. They do not appear septic. -There is TTP about the low back and incision region, moderate Dressing CDI, no drainage -Upper extremities show [5] out of 5 strength in all major muscle groups. -Lower extremities with 4+ out of 5 strength in all major muscle groups, Has not been out of bed yet. -There is [FROM] that is [painless] of the b/l UE and LE in all major joints. Neg SLR, No tensionig signs -They are intact to light touch sensation in C5 to T1 and L2 to S1 nerve distribution. -DTR [2]/4 all upper and lower extremities -Patient has palpable distal pulses all 4 ext -Compartments are soft and compressible. -Patient shows a negative Robin's [-Neg Hoffmans b/l] [-Neg Clonus b/l] [-Neg babinski b/l] Cranial nerves II through XII are grossly intact. Isabel in place good output, yellow clear SCDs in place - Constitutional General appearance: Present: cooperative, obese - EENT Eyes: Present: EOMI, PERRLA Assessment and Plan Assessment: 78 yo female POD 1 L3-5 decompressive laminectomy with dural repair LE radiculopathy, resolving Neurogenic claudication Plan: -Appreciate leasing consultant and team management. -Activity: Ambulate QID, OOB all meals, up and about, limit lifting bending twisting to less than 5 lbs. Use walker or cane if needed for stability. -PT/OT every day, increase ambulation strength and balance. -Gradual sit up to stand. If symptomatic (OH, nausea, vomiting, dizzy) lay back down and start again -Pain control: [Adequate at this time] -Meds: [reviewed] -GI ppx: senna, Miralax -DC isabel when up and about, bedside commode if needed -DVT PPX: [OK to restart Heparin tonight] -Hygiene: Shower today. Maintain dressing clean and dry. Meticulous cleaning after BMs away from incision site -Drains: None -Encourage IS 10x/hr -Dispo: [Pending]
[2023-11-08 08:28] LABS: Basophils # (A) 0.01 X 10*3/uL (0.00-0.10); Basophils % (A) 0.1 %; Eosinophils # (A) 0 X 10*3/uL (0.04-0.35); Eosinophils % (A) 0 %; HCT 39.1 % (37.2-46.3); HGB 13.2 g/dL (12.0-15.0); Lymphocytes # (A) 0.81 X 10*3/uL (0.90-5.00); Lymphocytes % (A) 11.2 %; MCH 32.4 pg (27.0-32.0); MCHC 33.8 g/dL (32.0-37.0); MCV 95.8 FL (80.0-97.0); Mean Platelet Volume 9.6 FL (9.5-12.2); Monocytes # (A) 0.56 X 10*3/uL (0.20-1.00); Monocytes % (A) 7.8 %; NRBC Per 100 WBC 0 X 10*3/uL (0.00-0.01); Neutrophils # (A) 5.82 X 10*3/uL (1.80-7.70); Neutrophils % (A) 80.6 %; Platelet Count 151 X 10*3/uL (140-440); RBC 4.08 X 10*6/uL (4.10-5.20); RDW 12.8 % (11.5-14.5); WBC 7.22 X 10*3/uL (4.50-10.00)
[2023-11-08] MEDS: clonazePAM 0.5 MG TAB PO SCH (08:55)
--- NOTE | 2023-11-08 09:19 | P.CONS ---
History of Present Illness - Reason for Consult Consult date: 11/07/23 medical management Requesting physician: Pedro Pablo Gonzalez - History of Present Illness this is a 78-year-old female patient who presented for an elective L3 to L4 to L4 to L5 laminectomy with Dr. Arrieta on 11/07/2023. Patient has a past medical history of breast cancer in 2005 was surgery and chemo, GERD, hypertension, osteoporosis, pulmonary embolus, Graves' disease. at this time patient is resting comfortably in bed. She denies chest pain or shortness of breath. Patient denies nausea vomiting or diarrhea. Patient denies any urinary burning or frequency Review of Systems please for HPI otherwise unremarkable Past Medical History Past Medical History: Cancer, GERD/Reflux, Hypertension, Osteoarthritis (OA), Pulmonary Embolus (PE), Thyroid Disorder Additional Past Medical History / Comment(s): Graves Disease, hx. PE's 2018- takes xarelto, hx. breast cancer 2005-had surgery & chemo History of Any Multi-Drug Resistant Organisms: None Reported Past Surgical History: Back Surgery, Breast Surgery, Cholecystectomy, Joint Replacement Additional Past Surgical History / Comment(s): Colonoscopy; right Knee replaceme nt, left Mastectomy; suhas. Cataracts, EGD Past Anesthesia/Blood Transfusion Reactions: Postoperative Nausea & Vomiting (PONV) Additional Past Anesthesia/Blood Transfusion Reaction / Comm: states she had panic attack after last colonoscopy, nauseated after EGD Smoking Status: Never smoker - Past Family History Mother Family Medical History: Cancer Additional Family Medical History / Comment(s): Lung CA Father Family Medical History: Cancer Additional Family Medical History / Comment(s): Lung CA Sister(s) Family Medical History: Blood Disorder, CVA/TIA Additional Family Medical History / Comment(s): factor 5 Medications and Allergies Home Medications Medication Instructions Recorded Confirmed Type Escitalopram Oxalate [Lexapro] 5 mg PO 1400 12/15/17 11/07/23 History Levothyroxine Sodium [Levoxyl] 150 mcg PO DAILY 12/15/17 11/07/23 History nadoloL [Corgard] 20 mg PO DAILY 12/20/17 11/07/23 History clonazePAM [KlonoPIN] 0.25 mg PO DAILY 12/26/18 11/07/23 History Mirtazapine [Remeron] 7.5 mg PO HS 11/03/23 11/07/23 History Pantoprazole [Protonix] 40 mg PO PC-SUPPER 11/03/23 11/07/23 History Rivaroxaban [Xarelto] 20 mg PO DAILY 11/03/23 11/07/23 History Allergies Allergy/AdvReac Type Severity Reaction Status Date / Time aspirin AdvReac Abdominal Verified 11/07/23 09:21 Pain Physical Exam Vitals: Vital Signs Temp Pulse Pulse Resp BP BP Pulse Ox 11/07/23 13:51 61 16 138/59 95 11/07/23 13:36 68 16 147/79 98 11/07/23 13:21 62 16 140/73 97 11/07/23 13:06 96.9 F L 63 16 167/75 96 11/07/23 09:36 98.4 F 64 18 150/67 95 Intake and Output 11/06/23 11/07/23 11/07/23 22:59 06:59 14:59 Intake Total 1102 Output Total 300 Balance 802 Intake: IV 1102 Output: Urine 200 Estimated Blood Loss 100 Other: Weight 104 kg Head normocephalic Neck supple Lungs clear to auscultation bilaterally no wheezing or crackles Heart regular rate and rhythm S1-S2, no rub or gallop Abdomen is soft nontender nondistended positive bowel sounds no hepatos plenomegaly Extremities no edema Neuro alert and orientated to 3 Results CBC & Chem 7: 11/08/23 05:28 Assessment and Plan Assessment: 1. Status post laminectomy L4 to L5 with Dr. German on 11/07/2023 2. History of pulmonary embolism patient maintained on Xarelto at home will defer to surgical services for the initiation of this medication 3. History of breast cancer in 2005 4. History of Graves' disease 5. History of hypothyroidism 6. History of osteoarthritis 7. History of essential hypertension 8. History of anxiety and depression Thank you for this consultation we will continue to follow patient closely throughout stay Repeat labs ordered Time with Patient: Greater than 30 (Greater than 60% of the total time spent in counseling and coordination of care)
--- NOTE | 2023-11-08 09:22 | P.PN ---
Subjective Progress Note Date: 11/08/23 this is a 78-year-old female patient who presented for an elective L3 to L4 to L4 to L5 laminectomy with Dr. Arrieta on 11/07/2023. Patient has a past medical history of breast cancer in 2006 was surgery and chemo, GERD, hypertension, osteoporosis, pulmonary embolus, Graves' disease. at this time ivanna brunson is resting comfortably in bed. She denies chest pain or shortness of breath. Patient denies nausea vomiting or diarrhea. Patient denies any urinary burning or frequenc On 11/08/2023 patient is alert and oriented 3 currently sitting up in bed.current vital signs temp 98.2, heart 61, respiratory rate 17, blood pressure 126/74 with pulse ox 95% on 2 L. Lab work currently pending PT OT services following. Patient denies chest pain or shortness of breath. Patient denies nausea vomiting or diarrhea. Patient denies any urinary burning or frequency Objective - Vital Signs Vital signs: Vital Signs Temp 98.2 F 11/08/23 07:24 Pulse 61 11/08/23 07:24 Resp 17 11/08/23 07:24 BP 126/74 11/08/23 07:24 Pulse Ox 95 11/08/23 07:24 FiO2 Intake & Output 11/07/23 11/08/23 11/08/23 18:59 06:59 18:59 Intake Total 1502 Output Total 950 500 800 Balance 552 -500 -800 Weight 104 kg Intake: IV 1502 Output: Urine 850 500 800 Estimated Blood Loss 100 Other: Voiding Method Indwelling Catheter - Exam Head normocephalic Neck supple Lungs clear to auscultation bilaterally no wheezing or crackles Heart regular rate and rhythm S1-S2, no rub or gallop Abdomen is soft nontender nondistended positive bowel sounds no hepatosplenomegaly Extremities no edema Neuro alert and orientated to - Labs CBC & Chem 7: 11/08/23 05:28 Labs: Abnormal Lab Results - Last 24 Hours (Table) 11/08/23 Range/Units 05:28 RBC 4.08 L (4.10-5.20) X 10*6/uL MCH 32.4 H (27.0-32.0) pg Lymphocytes # 0.81 L (0.90-5.00) X 10*3/uL Eosinophils # 0 L (0.04-0.35) X 10*3/uL Assessment and Plan Assessment: 1. Status post laminectomy L4 to L5 with Dr. German on 11/07/2023 2. History of pulmonary embolism patient maintained on Xarelto at home will defer to surgical services for the initiation of this medication 3. History of breast cancer in 2005 4. History of Graves' disease 5. History of hypothyroidism 6. History of osteoarthritis 7. History of essential hypertension 8. History of anxiety and depression Thank you for this consultation we will continue to follow patient closely thr oughout stay Repeat labs ordered
[2023-11-08 11:03] LABS: BUN/Creat Ratio 19.22 Ratio (12.00-20.00); Blood Urea Nitrogen 17.3 mg/dL (9.0-27.0); Calcium 8.7 mg/dL (8.7-10.3); Carbon Dioxide 26.4 mmol/L (21.6-31.8); Chloride 104 mmol/L (96-109); Glucose 112 mg/dL (70-110); Potassium 4.2 mmol/L (3.5-5.5); Sodium 141 mmol/L (135-145)
[2023-11-08] MEDS: ESCITALOPRAM 5 MG TAB PO SCH (12:32)
[2023-11-08] MEDS: SENNOSIDES-DOCUSATE SODIUM 1 EACH TAB PO PRN (16:14)
[2023-11-08] MEDS: HYDROcodone/APAP 5-325MG 1 EACH TAB PO PRN (20:02)
[2023-11-08] MEDS: HEPARIN SODIUM,PORCINE 5,000 UNIT/ML 1 ML VIAL SQ SCH (21:37)
[2023-11-09 02:57] VITALS: RESP 17
[2023-11-09 04:41] LABS: Basophils % (A) 0 %; Eosinophils # (A) 0.1 k/uL (0-0.7); Eosinophils % (A) 2 %; HCT 40.1 % (34.0-46.0); HGB 13.1 gm/dL (11.4-16.0); Lymphocytes # (A) 1.4 k/uL (1.0-4.8); Lymphocytes % (A) 21 %; MCH 32.5 pg (25.0-35.0); MCHC 32.8 g/dL (31.0-37.0); Mean Platelet Volume 8.2; Monocytes # (A) 0.4 k/uL (0-1.0); Monocytes % (A) 6 %; Neutrophils # (A) 4.7 k/uL (1.3-7.7); Neutrophils % (A) 70 %; Platelet Count 125 k/uL (150-450); RBC 4.05 m/uL (3.80-5.40); RDW 13.3 % (11.5-15.5); WBC 6.8 k/uL (3.8-10.6)
[2023-11-09 04:47] LABS: ALT 82 U/L (4-34); African American GFR (CKD) >90 (>60 ml/min/1.73 sqM); Albumin/Globulin Ratio 1.2; Anion Gap 5 mmol/L; Blood Urea Nitrogen 28 mg/dL (7-17); Calcium 8.3 mg/dL (8.4-10.2); Carbon Dioxide 24 mmol/L (22-30); Chloride 107 mmol/L (98-107); Globulin 2.8 g/dL; Glucose 91 mg/dL (74-99); Non-African American GFR(CKD) 80 (>60 ml/min/1.73 sqM); Sodium 136 mmol/L (137-145)
[2023-11-09 04:48] LABS: AST 84 U/L (14-36); Albumin 3.3 g/dL (3.5-5.0); Alkaline Phosphatase 62 U/L (38-126); Potassium 4.4 mmol/L (3.5-5.1); Total Bilirubin 0.9 mg/dL (0.2-1.3); Total Protein 6.1 g/dL (6.3-8.2)
[2023-11-09 08:02] VITALS: BP 151/75; PULSE 63; TEMP 97.4
--- NOTE | 2023-11-09 09:02 | P.PN ---
Subjective Progress Note Date: 11/09/23 Principal diagnosis: L3-5 Stenosis LE radiculopathy Neurogenic claudication Patient seen and examined this morning. She is sitting up in the chair at bedside. Patient states that her pain is managed on current regimen. Patient reports that she did work with physical therapy yesterday and has been back and forth to the restroom without any difficulty. Patient continues to deny any dizziness, headache, blurred vision, or nausea. Surgical incision to the lumbar spine, edges are well approximated with stefan intact. Small amount of sangui nous drainage on dressing. New surgical dressing has been applied. Patient reports she is awaiting delivery of a rolling walker. Patient states she feels comfortable at this time with going home. Discharge instructions have been discussed. No acute concerns at this time. Objective - Vital Signs Vital signs: Vital Signs Temp 97.4 F L 11/09/23 07:05 Pulse 63 11/09/23 07:05 Resp 17 11/09/23 07:05 BP 151/75 11/09/23 07:05 Pulse Ox 95 11/09/23 07:45 FiO2 Intake & Output 11/08/23 11/09/23 11/09/23 18:59 06:59 18:59 Output Total 1200 800 Balance -1200 -800 Output: Urine 1200 800 Uretheral (King) 200 Stool 0 Other: Voiding Method Indwelling Catheter Toilet # Voids 1 1 - Exam Physical Examination General: The patient is awake and alert, in no acute distress Skin: Skin is warm and dry with no obvious rashes or lesions. Surgical incision to the lumbar spine, edges are well approximated with stefan intact. New surgical dressing applied. Eye: Pupils are equal, round and reactive to light, extra-ocular movements are intact; there is normal conjunctiva bilaterally. Neck: The neck is supple, there is no tenderness and ROM intact. Cardiovascular: There is a regular rate and rhythm. No murmur, rub or gallop is appreciated. Respiratory: Lungs are clear to auscultation, respirations are non-labored, breath sounds are equal. Gastrointestinal: Soft, non-distended, non-tender abdomen. Back: There is no tenderness to palpation in the midline, paralumbar, parathoracic or buttocks region. There is no obvious deformity . Musculoskeletal: ROM limited secondary to pain and stiffness from surgical procedure. Muscle strength in all major muscle groups of bilateral upper extremities 5/5, bilateral lower extremities 4/5. Neurological: CN 2-12 intact. There are no obvious motor or sensory deficits. Movement and coordination equal and intact. Sensory exam to light touch intact C5-T1 and intact from L2-S1. Reflexes 2/4 in bilateral upper and lower extremities. Negative Hoffmans, babinski, and clonus signs. Psychiatric: Cooperative, appropriate mood & affect, normal judgment. - Labs CBC & Chem 7: 11/09/23 03:56 11/09/23 03:56 Labs: Abnormal Lab Results - Last 24 Hours (Table) 11/08/23 11/08/23 11/09/23 Range/Units 05:28 05:28 03:56 RBC 4.08 L (4.10-5.20) X 10*6/uL MCH 32.4 H (27.0-32.0) pg Plt Count 125 L (150-450) k/uL Lymphocytes # 0.81 L (0.90-5.00) X 10*3/uL Eosinophils # 0 L (0.04-0.35) X 10*3/uL Sodium (137-145) mmol/L BUN (7-17) mg/dL Glucose 112 H (70-110) mg/dL Calcium (8.4-10.2) mg/dL AST (14-36) U/L ALT (4-34) U/L Total Protein (6.3-8.2) g/dL Albumin (3.5-5.0) g/dL 11/09/23 Range/Units 03:56 RBC (4.10-5.20) X 10*6/uL MCH (27.0-32.0) pg Plt Count (150-450) k/uL Lymphocytes # (0.90-5.00) X 10*3/uL Eosinophils # (0.04-0.35) X 10*3/uL Sodium 136 L (137-145) mmol/L BUN 28 H (7-17) mg/dL Glucose (70-110) mg/dL Calcium 8.3 L (8.4-10.2) mg/dL AST 84 H (14-36) U/L ALT 82 H (4-34) U/L Total Protein 6.1 L (6.3-8.2) g/dL Albumin 3.3 L (3.5-5.0) g/dL Assessment and Plan Assessment: Postop day 2: L3-L5 decompressive laminectomy with dura repair L3-5 Stenosis LE radiculopathy Neurogenic claudication Plan: -Appreciate technical marketing consultant and team management. -Activity: Ambulate QID, OOB all meals, up and about, limit lifting bending twisting to less than 5 lbs. Use walker or cane if needed for stability. -Daily PT/OT, increase ambulation strength and balance. -Pain control: Adequate at this time -Meds: reviewed -GI ppx: senna, Miralax -DVT PPX: Heparin -Hygiene: Shower today. Maintain dressing clean and dry. Meticulous cleaning after BMs away from the incision site -Encourage IS 10x/hr -Dispo: Anticipate discharge home today with homecare *I reviewed and discussed this case with my attending Dr. Gonzalez, whom has reviewed this chart and films and is in agreement with assessment and plan of care as outlined above. I have personally seen and examined the patient, performed the documentation and the assessment and plan as written. Number of minutes spent on the visit: 20m.
--- NOTE | 2023-11-09 10:26 | P.DS ---
Providers Date of admission: 11/08/23 13:08 Expected date of discharge: 11/09/23 Attending physician: Pedro Pablo Gonzalez DO Consults: 11/07/23 13:10 Consult Physician Routine Consulting Provider: Fabio Babin Consult Reason/Comments: medical management s/p L3-L5 laminectomy Do you want consulting provider notified?: Yes Primary care physician: Fabio Jerezjar [facility] Course: Hospital Course: The patient was evaluated preoperatively and found to have the diagnosis of Lumbar spondylosis They underwent appropriate preoperative care and were willing to undergo the intended procedure. They underwent a successful L3-L5 decompressive laminectomy with dura repair were recovered appropriately and sent to the floor. While on the floor they worked with physical therapy, occupational therapy and nursing to enhance their recovery experience. Their pain was well controlled through their stay and they were started on appropriate medications, DVT ppx modalities, activity and dietary needs. Daily labs were monitored closely, and transfusions were only used when necessary. Medicine as well as other consulting services have made their input and have helped with our team approach and multidisciplinary care. PT milestones have been met and passed and they have made the recommendation of Home with home care for this patient and treating providers agree with this care path. The patient will be discharged home with appropriate medications, instructions and follow-up information and in stable condition. Patient Condition at Discharge: Good Plan - Discharge Summary Discharge Rx Participant: Yes New Discharge Prescriptions: New HYDROcodone/APAP 10-325MG [[place] 10-325] 1 tab PO Q4-6H PRN #42 tab PRN Reason: Pain Sennosides/Docusate Sodium [Senna Plus 8.6-50 mg Softgel] 1 each PO DAILY PRN #20 capsule PRN Reason: Constipation cefaDROXiL [Duricef] 500 mg PO Q12HR #10 cap Cyclobenzaprine [Flexeril] 5 mg PO TID PRN #40 tablet PRN Reason: Muscle Spasm No Action Escitalopram Oxalate [Lexapro] 5 mg PO 1400 Levothyroxine Sodium [Levoxyl] 150 mcg PO DAILY nadoloL [Corgard] 20 mg PO DAILY clonazePAM [KlonoPIN] 0.25 mg PO DAILY Pantoprazole [Protonix] 40 mg PO PC-SUPPER Mirtazapine [Remeron] 7.5 mg PO HS Rivaroxaban [Xarelto] 20 mg PO DAILY Discharge Medication List Escitalopram Oxalate [Lexapro] 5 mg PO 1400 12/15/17 [History] Levothyroxine Sodium [Levoxyl] 150 mcg PO DAILY 12/15/17 [History] nadoloL [Corgard] 20 mg PO DAILY 12/20/17 [History] clonazePAM [KlonoPIN] 0.25 mg PO DAILY 12/26/18 [History] Mirtazapine [Remeron] 7.5 mg PO HS 11/03/23 [History] Pantoprazole [Protonix] 40 mg PO PC-SUPPER 11/03/23 [History] Rivaroxaban [Xarelto] 20 mg PO DAILY 11/03/23 [History] Cyclobenzaprine [Flexeril] 5 mg PO TID PRN #40 tablet 11/09/23 [Rx] HYDROcodone/APAP 10-325MG [[place] 10-325] 1 tab PO Q4-6H PRN #42 tab 11/09/23 [Rx] Sennosides/Docusate Sodium [Senna Plus 8.6-50 mg Softgel] 1 each PO DAILY PRN #20 capsule 11/09/23 [Rx] cefaDROXiL [Duricef] 500 mg PO Q12HR #10 cap 11/09/23 [Rx] Follow up Appointment(s)/Referral(s): [facility], [NON-STAFF] - As Needed Aging,[place] [NON-STAFF] - As Needed (Please call for housekeeping) Pedro Pablo Gonzaelz, [Doctor of Osteopathic Medicine] - 11/21/23 3:10 pm Activity/Diet/Wound Care/Special Instructions: Spine Discharge and Recovery Instructions Date of Surgery: 11/07/23 Diagnosis: Lumbar spondylosis Procedure: L3-L5 decompressive laminectomy with dura repair Medications: See medication list All medication refills should be obtained through your primary care doctor or your clinic spine surgeon. Please discuss prescription refills at your follow up appointment. Do not call the hospital for medication refills. Activity: Encourage ambulation with assist of walker, Up and about 6-8x daily PT/OT daily work on balance, strength and mobility Up in chair with all meals Shower daily Brace: Use brace when up and about, do not wear in bed or shower Dressing: Leave your dressing in place for a total of 3 days post operatively. Then you may remove your dressing and leave open to air. Keep the area clean and if not able to keep area clean, then cover with sterile gauze and tape. Showering: You may shower 3 days after your procedure allowing soap and water to run over incision. Do not scrub. Do not soak. Blot dry. Follow up: Please confirm a follow up appointment with your surgeon 2 weeks post operatively. Please make an appointment to follow up with your PCP in 1-2 weeks after surgery for evaluation 3 phase, 3-week plan POST OP WEEKS 1-3 1. Lifting/carrying/pushing/pulling limited to less than 5 pounds. 2. Do not sit for longer than 15 minutes at one time. Get up and walk around. Prolonged sitting is NOT advised. If you lay down, see if you can tolerate laying down on you front (belly side) 3. Walk for periods of 15 minutes = 1 mile but no longer; do it multiple times times each day. 4. Ice your low back after activity. POST OP WEEKS 3-6 1. Lifting limited to less than 20 pounds. 2. Do not sit for longer than 30 minutes at a time. Frequently change positions. Use a sit-to stand workstation or take frequent breaks from sitting if you have returned to work. 3. Walk for 30 minutes each day. If possible, do these three or more times a day POST OP WEEKS 6+ At your 6-week appointment we will give you a physical therapy referral to focus on a core stabilization and strengthening program. You should also work on leg & buttock strengthening, hamstring & quadriceps stretching, and continue a low impact aerobic activity program such as swimming, walking, or riding a stationary bicycle. During the initial 6 weeks after your surgery, you are at the highest risk of re-injuring your spine. You should generally avoid BLTs (bending, lifting and twisting combination motions) and follow the above guidelines to reduce the chance of reinjury. You can anticipate post op appointments in our office at approximately 3 weeks and 6 weeks after your surgery. INCISION CARE: If your incision is not draining you do NOT need to cover it with a dressing. Keep your incision clean, dry and intact. In most cases, we apply skin glue, stefan or sutures to the incision at the time of surgery. This will be like a crust or have the appearance of a scab and will fall off in time on its own. The stitches or stefan need to be removed at 3 weeks post op appointment. You may begin to shower 3 days after surgery (this allows the glue to romano well). However, please avoid scrubbing the incision site or peeling off any of the skin glue. This will ensure optimal healing of your incision. Also, during this time avoid soaking the incision area in water - this includes swimming pools, hot tubs or baths. No ointments, lotions or oils on the incision until your surgeon allows. Leave stefan, sutures or glue in place. Neurological dysfunction that comes on suddenly can also be a sign of a stroke. Below some common symptoms of a stroke are listed: B - balance difficulty such as sudden onset walking or leaning to one side - NEW E - eye problem such as sudden double vision or trouble seeing on one side - NEW F - Facial weakness or numbness on one side - NEW A - Arm or leg weakness or numbness on one side - NEW S - Slurred speech or difficulty with word finding - NEW T - Time is BRAIN! Call 911 as soon as you recognize these symptoms Diet: Consume a regular diet rich in vegetables and lean protein such as chicken or fish. You should consume in a ratio of approximately 20% fats|40% carbohydrates|40%protein. Vegetables, sweet potatoes, brown rice or quinoa are examples of good carbohydrates. Chips, white bread, cookies and sweets/sugar are examples of bad carbohydrates. Limit your bad carbs, go wild with good carbs. "Life's Simple 7" Guidelines as per [place] [employer] These will help you reclaim your life after surgery and surveyor rod helper in your recover y, keeping in mind your restrictions. (1) Get Active. Physical activity can help people lose weight, control high blood pressure and cholesterol, feel emotionally better, and sleep better. (2) Control Cholesterol. Avoid a diet high in saturated fat, trans fat, & cholesterol. Limit whole milk & cream, ice cream, butter, egg yolks, processed meats (like sausage and hot dogs), and fatty meats. Choose healthy foods that are low in saturated fat, trans fat and cholesterol which include: Fruits and vegetables, fiber rich grain products (like whole grain pasta and brown rice), lean meat such as chicken, fish, nuts, seeds, and legumes. (3) Eat Better. Eat small portions. Shop at the grocery with a list and do not stray from it. Tips for a healthy diet include: Limit sodium intake to less than 1500mg daily, avoid prepackaged, processed, and fast foods, choose a diet rich in fruits, vegetables, and whole grain, high fiber foods, and limit saturated & cholesterol in your diet. (4) Manage Blood Pressure. If you have high blood pressure, you should have a cuff at home so that you can check your blood pressure regularly. Be sure you have a good cuff. An arm one is generally better than a wrist one. Bring the cuff to a doctor's appointment to validate that the measurements that your cuff are taking are accurate. Take your blood pressure twice daily when you are sitting down and relaxing. Record the numbers in a log and bring this log with you to your doctors' appointments. (5) Lose Weight if your BMI is above 25. A healthy BMI is between 19-25. To calculate Your BMI, you may use a Standard BMI Calculator on the NIH BMI website: <www.nhlbi.nih.gov/guidelines/obesity/BMI/bmicalc.htm>. Weigh oneself daily. If you are overweight, set a goal to lose weight. A pound a week loss if needed is a good target. (6) Reduce Blood Sugar. Limit foods and liquids with "added sugars." (Added sugars include sucrose, fructose, glucose, maltose, dextrose, high fructose corn syrup, corn syrup, concentrated fruit juice and honey). (7) Stop Smoking. If you smoke, quitting smoking is one of the best things that you can do for your health. Smoking increases your risk of heart attack, stroke, and peripheral vascular disease, which is a build-up of plaque in your arteries. Please discard all the cigarettes and lighters in your house. Have a plan for what you will do when you have the urge to smoke. Direct and second- hand smoke shortens your life as well as the lives of your family, friends and others around you. For your health and the health of those around you, please consider quitting! Proper Bending Body Mechanics: Maintain a wide stance with one foot slightly in front of the other. Keep your back straight. Bend utilizing the strength in your hips and knees. Do not bend at the waist. Maintain the lifted object at your waist-level close to your body. Avoid lifting weight that causes immediately pain or pain anywhere in the body afterwards. Smoking/Nicotine If there was ever one thing that you could do to increase your overall health, decrease your risk of cardiovascular problems by about 39% the second you make the choice, it is to STOP SMOKING. Your body's most instant gratification is the second you stop smoking. We have all heard the studies, read the articles but it is true, smoking is extremely bad for your overall health, and moreover it is detrimental to your bone health. Nicotine, IN ANY FORM, kills bone cells, prevents your body from healing fractures, and significantly prolongs healing after surgery. In spine surgery specifically, it increases your risk of not healing your bones to create a fusion and increases your risk of having a revision surgery due to this up to 60%. I know it is hard. I know it feels impossible. But there are ways. Take control of your life. We are here to help you through it. And when you are ready, ask us and we can direct you to help if you desire. Use the START Plan to Quit Smoking (please visit the Helpguide.org website liste d below for more information): S = Set a quit date. Choose a date within the next 2 weeks, so you have enough time to prepare without losing your motivation to quit. If you mainly smoke at work, quit on the weekend, so you have a few days to adjust to the change. T = Tell family, friends, and co-workers that you plan to quit. Let your friends and family in on your plan to quit smoking and tell them you need their support and encouragement to stop. Look for a quit jina who wants to stop smoking as well. You can help each other get through the rough times. A = Anticipate and plan for the challenges you'll face while quitting. Most people who begin smoking again do so within the first 3 months. You can help yourself make it through by preparing ahead for common challenges, such as nicotine withdrawal and cigarette cravings. R = Remove cigarettes and other tobacco products from your home, car, and work. Throw away all your cigarettes (no emergency pack!), lighters, ashtrays, and matches. Wash your clothes and freshen up anything that smells like smoke. Shampoo your car, clean your drapes and carpet, and steam your furniture. T = Talk to your doctor about getting help to quit. Your doctor can prescribe medication to help with withdrawal and suggest other alternatives. If you can't see a doctor, you can get many products over the counter at your local pharmacy or grocery store, including the nicotine patch, nicotine lozenges, and nicotine gum. Resources for Quitting Smoking: <https://www.[place].gov/documents/[facility] [employer] [facility]/Quit_Tobacco_Resources_ for_patients_313480_7.pdf> Supplementation: Take recommended dosages of Vitamin D and Calcium to help fortify your bones and help them to heal. See your health maintenance packet for dosages and recommended levels. DVT/VTE prophylaxis: You will be given compression stockings from the hospital. Wear these daily for the first two weeks after surgery. You may take them off at night. You may be prescribed a medication to help thin your blood. Take this as directed. If you are not prescribed this medication, early and frequent ambulation has been shown to be the best prophylaxis to deep vein thrombosis and sequelae related to this event. Discharge Disposition: HOME WITH HOME HEALTH SERVICES
--- NOTE | 2023-11-09 11:20 | P.PN ---
Subjective Progress Note Date: 11/09/23 this is a 78-year-old female patient who presented for an elective L3 to L4 to L4 to L5 laminectomy with Dr. Arrieta on 11/07/2023. Patient has a past medical history of breast cancer in 2006 was surgery and chemo, GERD, hypertension, osteoporosis, pulmonary embolus, Graves' disease. at this time ivanna brunson is resting comfortably in bed. She denies chest pain or shortness of breath. Patient denies nausea vomiting or diarrhea. Patient denies any urinary burning or frequenc On 11/08/2023 patient is alert and oriented 3 currently sitting up in bed.current vital signs temp 98.2, heart 61, respiratory rate 17, blood pressure 126/74 with pulse ox 95% on 2 L. Lab work currently pending PT OT services following. Patient denies chest pain or shortness of breath. Patient denies nausea vomiting or diarrhea. Patient denies any urinary burning or frequency on 11/09/2023 patient was seen and examined on the medical she is alert and oriented 3 no apparent distress she is complaining of mild pain in her lower back otherwise she denies any complaints there is no fever or chills no headache or dizziness no chest pain no shortness of breath no cough no nausea or vomiting no abdominal pain no diarrhea no blood in the stools no burning with urination no frequency or urgency no hematuria., Labs reviewed patient is cleared from medical standpoint for discharge to home today. Follow-up in the office within 1 week. Objective - Vital Signs Vital signs: Vital Signs Temp 97.4 F L 11/09/23 07:05 Pulse 63 11/09/23 07:38 Resp 17 11/09/23 07:38 BP 151/75 11/09/23 07:05 Pulse Ox 95 11/09/23 07:45 FiO2 Intake & Output 11/08/23 11/09/23 11/09/23 18:59 06:59 18:59 Intake Total 100 Output Total 1200 800 Balance -1200 -800 100 Intake: Oral 100 Output: Urine 1200 800 Uretheral (King) 200 Stool 0 Other: Voiding Method Indwelling Catheter Toilet Toilet # Voids 1 1 - Exam Head normocephalic Neck supple Lungs clear to auscultation bilaterally no wheezing or crackles Heart regular rate and rhythm S1-S2, no rub or gallop Abdomen is soft nontender nondistended positive bowel sounds no hepatosplenomeg arielle Extremities no edema Neuro alert and orientated to - Labs CBC & Chem 7: 11/09/23 03:56 11/09/23 03:56 Labs: Abnormal Lab Results - Last 24 Hours (Table) 11/09/23 11/09/23 Range/Units 03:56 03:56 Plt Count 125 L (150-450) k/uL Sodium 136 L (137-145) mmol/L BUN 28 H (7-17) mg/dL Calcium 8.3 L (8.4-10.2) mg/dL AST 84 H (14-36) U/L ALT 82 H (4-34) U/L Total Protein 6.1 L (6.3-8.2) g/dL Albumin 3.3 L (3.5-5.0) g/dL Assessment and Plan Assessment: 1. Status post laminectomy L4 to L5 with Dr. German on 11/07/2023 2. History of pulmonary embolism patient maintained on Xarelto at home will defer to surgical services for the initiation of this medication 3. History of breast cancer in 2005 4. History of Graves' disease 5. History of hypothyroidism 6. History of osteoarthritis 7. History of essential hypertension 8. History of anxiety and depression Thank you for this consultation we will continue to follow patient closely throughout stay Repeat labs ordered
== END 2023-11-09 13:03 | disposition home health service (06) ==
LOC: OR 09:00 → 4SSUR 12:58 → OR 11-08 13:08
PROVIDERS: ADMIT Orthopaedic Surgery; ATTEND Orthopaedic Surgery
DX: M48.062 Spinal stenosis, lumbar region with neurogenic claudication (principal); M47.26 Other spondylosis with radiculopathy, lumbar region; M85.68 Other cyst of bone, other site; K21.9 Gastro-esophageal reflux disease without esophagitis; I10 Essential (primary) hypertension; E03.9 Hypothyroidism, unspecified; F41.9 Anxiety disorder, unspecified; F32.A Depression, unspecified; M19.90 Unspecified osteoarthritis, unspecified site; Z85.3 Personal history of malignant neoplasm of breast; Z86.711 Personal history of pulmonary embolism; Z92.21 Personal history of antineoplastic chemotherapy; Z79.01 Long term (current) use of anticoagulants; Z79.890 Hormone replacement therapy; Z79.899 Other long term (current) drug therapy
CPT/HCPCS: 96365; 96366 ×2; 96372 ×2; 96375; 94760 ×2; 97161; 80053; 80048; 85025 ×2; 72100; 63047; 63048; 15769; G0378 ×2; J3370; J0330; J1580; J1644 ×2; J1100; J2710; J2001 ×2; J0690 ×3; J2405; J3010; J1170 ×2; J2704; J0665

== ENCOUNTER → 2024-01-24 | Outpatient (CLI) | payer MEDICARE ==
--- NOTE | 2024-01-24 15:36 | MM ---
Reason for Exam: Hx of breast cancer, mastectomy. Last mammogram was performed 1 year(s) and 1 month(s) ago. Patient History: Menarche at age 14. First Full-Term at age 20. Left ovary removed at age 41. Right ovary removed at age 41. Hysterectomy at age 41. Breast cancer, left, age 57. Estrogen for 10 years from age 41 until age 51. 2000, Mastectomy on the Left side. Sister had breast cancer, age 50. Sister had breast cancer, age 78. Prior Study Comparison: 11/02/2021 Bilateral Screening Mammogram, [facility]. 12/28/2022 Bilateral Screening Mammogram, [facility]. Tissue Density: Right: There are scattered areas of fibroglandular density. Findings: Analyzed By CAD. No significant change from prior exams. Overall Assessment: Negative, BI-RAD 1 Management: Screening Mammogram of the right breast in 1 year. . Results were given to the patient verbally at the time of exam. Patient should continue monthly self-breast exams. A clinical breast exam by your physician is recommended on an annual basis. This exam should not preclude additional follow-up of suspicious palpable abnormalities. Electronically signed and approved by: Sasha Amaya M.D. Radiologist
== END | disposition home or self-care (01) ==
LOC: RADMAMWWP 14:31
PROVIDERS: ATTEND Internal Medicine Hematology & Oncology
DX: Z12.31 Encounter for screening mammogram for malignant neoplasm of breast (principal); C50.312 Malignant neoplasm of lower-inner quadrant of left female breast; R92.321 Mammographic fibroglandular density, right breast; Z80.3 Family history of malignant neoplasm of breast; D68.59 Other primary thrombophilia; Z86.711 Personal history of pulmonary embolism; Z17.0 Estrogen receptor positive status [ER+]
CPT/HCPCS: 77065; G0279; 77061

== ENCOUNTER → 2025-02-22 | Outpatient (CLI) | payer MEDICARE ==
--- NOTE | 2025-02-22 15:13 | MM ---
Reason for Exam: Hx of breast cancer, conservation therapy. Last mammogram was performed 1 year(s) and 1 month(s) ago. Patient History: Menarche at age 14. First Full-Term at age 20. Left ovary removed at age 41. Right ovary removed at age 41. Hysterectomy at age 41. Breast cancer, left, age 57. Estrogen for 10 years from age 41 until age 51. 2000, Mastectomy on the Left side. Sister had breast cancer, age 50. Sister had breast cancer, age 78. Prior Study Comparison: 11/02/2021 Bilateral Screening Mammogram, [facility]. 12/28/2022 Bilateral Screening Mammogram, [facility]. 01/24/2024 Right MG 3D diag mammo w/cad RT, [facility]. Tissue Density: Right: There are scattered areas of fibroglandular density. Findings: Analyzed By CAD. No new suspicious masses, calcifications or distortions. Overall Assessment: Negative, BI-RAD 1 Management: Screening Mammogram of the right breast in 1 year. Results were given to the patient verbally at the time of exam. Patient should continue monthly self-breast exams. A clinical breast exam by your physician is recommended on an annual basis. This exam should not preclude additional follow-up of suspicious palpable abnormalities. Note on Marianela scores and lifetime risk: 1. A Marianela score greater than 3% is considered moderate risk. If this is the case, consider specialist referral to assess eligibility for a risk reducing agent. 2. If overall lifetime risk for the development of breast cancer is 20% or higher, the patient may qualify for future screening with alternating mammogram and breast MRI. [facility], , 02/22/2025 3:10 PM. Electronically signed and approved by: Saeed Isbell DO
--- NOTE | 2025-02-25 07:37 | BD ---
EXAMINATION TYPE: Axial Bone Density DATE OF EXAM: 02/22/2025 CLINICAL HISTORY: 80 years old Female. ICD-10 CODE: M81.0 OSTEOPENIA , Additional History: Height: 66 Weight: 223.7 FRAX RISK QUESTIONS: Alcohol (3 or more units per day): no Family History (Parent hip fracture): no Glucocorticoids (More than 3mos): no (Ex: prednisone, prednisolone, methylprednisolone, dexamethasone, and hydrocortisone). History of Fracture in Adulthood: yes Secondary Osteoporosis: 1. Type 1 Diabetes: no 2. Hyperthyroidism: no 3. Menopause before 45: no 4. Malnutrition: no 5. Chronic liver disease: no Rheumatoid Arthritis: no Current Tobacco Use: no RISK FACTORS HISTORY OF: Surgery to Spine/Hip(right/left)/Wrist (right/left): disc surgery MEDICATIONS: Thyroid Medications: levothyroxine How Lon+ years EXAM MEASUREMENTS: Bone mineral densitometry was performed using the [employer]. Bone mineral density as measured about the Lumbar spine is: ----- L1-L4(G/cm2): 0.889 T Score Values are as follows: ----- L1: -1.9 ----- L2: -2.4 ----- L3: -2.6 ----- L4: -2.9 ----- L1-L4: -2.4 Z Score Values are as follows: ----- L1: -1.2 ----- L2: -1.7 ----- L3: -1.9 ----- L4: -2.3 ----- L1-L4: -1.8 Bone mineral density has: decreased -9.1 % since study of: 03.01.2022 Bone mineral density about the R hip (g/cm2): 0.762 Bone mineral density about the L hip (g/cm2): 0.747 T Score values are as follows: -----R Neck: -1.1 -----L Neck: -1.6 -----R Total: -1.9 -----L Total: -2.1 Z Score values are as follows: -----R Neck: 0.2 -----L Neck: -0.3 -----R Total: -0.8 -----L Total: -1.0 Bone mineral density has: decreased -5.4 % since study of: 8.1.2021 FRAX%s: The graph provided illustrates a 12.6% chance for a major osteoporotic fx and a 3.0% chance f or the hips probability for fx in 10 years time. IMPRESSION: Osteopenia (T Score between -2.5 and -1). Note that measurements are approaching osteoporosis in the lumbar spine. There is slightly increased risk of fracture and the patient may be considered for treatment. Re-Screen 2-5 years. NOTE: T-SCORE=SD OF THE YOUNG ADULT MEAN. [facility], , 02/25/2025 7:34 AM
== END | disposition home or self-care (01) ==
LOC: RADMAMWWP 14:45
PROVIDERS: ATTEND Internal Medicine Hematology & Oncology
DX: M81.0 Age-related osteoporosis without current pathological fracture (principal); C50.312 Malignant neoplasm of lower-inner quadrant of left female breast; E03.9 Hypothyroidism, unspecified; D68.59 Other primary thrombophilia; Z17.0 Estrogen receptor positive status [ER+]; R92.321 Mammographic fibroglandular density, right breast; Z80.3 Family history of malignant neoplasm of breast; Z86.711 Personal history of pulmonary embolism
CPT/HCPCS: 77061; 77065; 77080; 84443; 84445; 84481; 86376